=== PATIENT | female | born 1970 | race Caucasian/White ===

== ENCOUNTER 2018-07-17 13:34 | Outpatient (CLI) | payer OTHER, SELFPAY ==
--- NOTE | 2018-07-17 13:30 | DI.RAD_ITS ---
SYMPTOMS/DIAGNOSIS: LEFT KNEE PAIN AND SWELLING, M25.562 LEFT KNEE: There are severe degenerative changes of both femorotibial joints, worse laterally. There is prominent periarticular spurring. Loose bodies are seen posteriorly. There may be a Fierro's cyst with a loose body. No joint effusion is seen. Patellofemoral degenerative changes are also present. IMPRESSION: Severe degenerative changes. Posterior loose bodies are seen.
== END 2018-07-17 13:54 ==
PROVIDERS: PCP Family Medicine; Visit Provider Family Medicine
DX: M25.562 Pain in left knee (principal); M16.11 Unilateral primary osteoarthritis, right hip; M23.42 Loose body in knee, left knee
CPT/HCPCS: 73562

== ENCOUNTER 2018-09-15 13:19 | Outpatient (CLI) | payer OTHER, SELFPAY ==
--- NOTE | 2018-09-15 13:18 | DI.RAD_ITS ---
SYMPTOMS/DIAGNOSIS: LEFT KNEE PAIN LEG LENGTH EXAMINATION: In the right knee, there is periarticular spurring seen both in the medial and lateral femorotibial joint space. In the left knee, there is moderate narrowing of the medial femorotibial joint. Periarticular spurring is seen both in the medial and lateral femorotibial joint spaces. The right lower extremity measures 88.4 cm, the left lower extremity measures 88.4 cm.
== END 2018-09-15 13:39 ==
PROVIDERS: PCP Family Medicine; Visit Provider Physician Assistant
DX: M25.562 Pain in left knee (principal); M76.892 Other specified enthesopathies of left lower limb, excluding foot
CPT/HCPCS: 77073

== ENCOUNTER 2018-10-09 09:42 | Outpatient (CLI) | payer OTHER, SELFPAY ==
[2018-10-09 10:46] LABS: HCT 33.8 % (36.0-46.0); HGB 10.1 g/dL (12.0-15.5); Mean Corp. HGB Concentration 29.9 g/dL (32.0-36.0); Mean Corpuscular Hemoglobin 23.8 pg (27.0-33.0); Mean Corpuscular Volume 79.5 fL (80-95); Mean Platelet Volume 10.7 fL (8.0-11.0); Platelet Count 347 x1000/uL (130-400); RBC 4.25 m/cumm (4.00-5.20); RBC Distribution Width 17.5 % (11.7-14.6); White Blood Cell Count 5.95 k/cumm (4.4-10.8)
[2018-10-09 11:02] LABS: ALT 18 U/L (12-78); AST 9 U/L (15-37); Albumin 3.3 g/dL (3.4-5.0); Alkaline Phosphatase 100 U/L (46-116); Anion Gap 7.4 mmol/L (3-11); BUN 21 mg/dL (7-18); Bilirubin, Total 0.3 mg/dL (0.2-1.0); CO2 29.6 mmol/L (21.0-32.0); CREATININE 0.79 mg/dL (0.55-1.02); Chloride 103 mmol/L (98-107); Cholesterol 161 mg/dL (50-200); Glucose 90 mg/dL (70-100); HDL Cholesterol 46 mg/dL (40-60); LDL CHOLESTEROL 97 mg/dL (<100); Potassium 4.3 mmol/L (3.5-5.1); Sodium 140 mmol/L (136-145); TSH 2.44 uIU/mL (0.358-3.74); Total Protein 6.8 g/dL (6.4-8.2); Triglyceride 88 mg/dL (30-150)
[2018-10-09 11:12] LABS: Calcium 8.6 mg/dL (8.5-10.1)
[2018-10-09 11:16] LABS: Vitamin D 25 Total 24.9 ng/ml (30-100)
== END 2018-10-09 10:02 ==
PROVIDERS: PCP Family Medicine; Visit Provider Family Medicine
DX: Z00.00 Encounter for general adult medical examination without abnormal findings (principal); E55.9 Vitamin D deficiency, unspecified
CPT/HCPCS: 36415; 80053; 80061; 82306; 83721; 85027; 84443

== ENCOUNTER 2018-10-09 09:53 | Outpatient (REF) | payer OTHER, SELFPAY ==
--- NOTE | 2018-10-09 09:00 | PAPFT_PTH ---
PATIENT: Sandra Thompson LOC: [facility] U#:[id number] AGE/SX: 48/F ROOM: RE10/09/[address]: Gianna Huddleston MD, DC : 1970 BED: DIS: 10/09/2018 SPEC #: [id number] RECD: 10/09/18 12:53 STATUS: WEI REQ #: [id number] SONIA: 10/09/18 09:[address]: Teresa Downey DEPT: [facility] Cytology RECD BY: Chelly Chávez ENTERED: 10/09/18 12:53 SP TYPE: PAPFT OTHR DR: Gianna Huddleston MD, DC Tissues: 1 - CX/ENDOCX FOR PAP SMEARS Procedures: PAP THIN PREP/UVM Screening HPV DNA PROBE Comments: [id number]
== END 2018-10-09 10:13 ==
LOC: LBN 09:53
PROVIDERS: PCP Family Medicine; Visit Provider Family Medicine
DX: Z12.4 Encounter for screening for malignant neoplasm of cervix (principal); Z11.51 Encounter for screening for human papillomavirus (HPV)
CPT/HCPCS: 88142; 87624

== ENCOUNTER 2019-01-06 08:34 | Outpatient (CLI) | payer OTHER, SELFPAY ==
--- NOTE | 2019-01-06 08:08 | W.PREOPHP ---
Date of service: 01/06/19 Assessment and Plan (1) Primary osteoarthritis of left knee: Current visit: No Status: Chronic Left total knee replacement. Details of surgery were discussed with patient as well as risks and pertinent anatomy. All questions were answered. History of Present Illness Chief Complaint: Left knee pain Narrative: Sandra is a 48 year-old female who comes in today for a pre-op history and physical for a left total knee replacement. She has been dealing with this pain for a few years now. 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 She does not have pain if she is resting, or sleeping. She does use anti-inflammatories, specifically Mobic, which does help. She has tried injections in the left knee, but they have not given her lasting relief. She has had x-rays done which revealed severe arthritis of the left knee with bone spurs especially in the medial compartment, but also the lateral side as well. There are also bone spurs and a loose body apparent posteriorly. Since she is failed conservative treatment, and the pain does get in the way of her daily activities and work, Dr. Rasmussen offers a left total knee replacement, and Sandra is anxious to proceed. Pertinent Surgical Information Sandra states that she is having some prolonged spotting after menses, and her PCP is aware. They believe at this point that it may have something to do with the transition to menopause. She was encouraged to keep an eye on this, but it should not postpone surgery. We will be getting labs to ensure that she has an adequate H&H. She states that she has an anaphylactic allergy to penicillin, so her preop antibiotic has been to clindamycin. Patient denies history of hypertension, CVA, [place], angina, asthma, COPD, renal or liver disorders, hepatitis, bleeding disorders, diabetes, immune or thyroid disorders. No complications from anesthesia. Review of Systems Constitutional Denies fever(s) ENT Denies dizziness and Denies sore throat Cardiovascular Denies chest pain, Denies palpitations and Denies dyspnea Respiratory Denies cough and Denies dyspnea Gastrointestinal Denies abdominal pain, Denies melena, Denies hematochezia, Denies diarrhea, Denies nausea and Denies vomiting Genitourinary Reports hematuria (believes it is spotting after period. PCP aware.) and Denies dysuria Neurologic Denies dizziness Endocrine Denies palpitations PFSH Family History Mother Essential hypertension Father Hyperlipidemia Brain cancer Sister Depression Maternal Grandfather Stroke Essential hypertension Paternal Grandfather No problems noted. Maternal Grandmother Diabetes Paternal Grandmother Diabetes Breast cancer Son Depression Daughter Depression MATERNAL FAMILY HISTORY Diabetes Personal history of malignant neoplasm Depression Heart disease Hyperlipidemia PATERNAL FAMILY HISTORY Diabetes Personal history of malignant neoplasm Social History Smoking/Tobacco Use Status: Never Second Hand Exposure: Yes Alcohol Intake: current Alcohol Intake frequency: holidays/special occasions only Drug use: Never Substance use type: does not use Caregiver/Support person: No Household members: spouse Housing: house Communication Needs: Corrective Lenses Do you need help understanding health information?: Never Pets and animals: Yes Pets and animals: dog(s) Sexually active: Yes Do you think of yourself as: straight/heterosexual Current gender identity: female What is your relationship status?: How often do you talk on the phone with friends or family?: three or more times per week How often do you get together with friends or relatives?: twice per week How often do you attend scientologist or hinduism services?: decline to answer Do you belong to any clubs or organized social groups?: no Panel score (0-1 are the most socially isolated patients): 2 What type of physical activity do you participate in: none Nany/Pentecostalism: No preference Special nany needs: No Seatbelt use: always Helmet use: No Drive intox or ride w/intox 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: No Meds Home Medications Medication Instructions Recorded Confirmed Type albuterol sulfate HFA 90 1 - 2 puff INHALATION Q4H PRN #1 07/17/18 01/06/19 Rx mcg/actuation aerosol inhaler puff meloxicam 7.5 mg tablet 7.5 mg PO BID PRN #180 tab 10/09/18 01/06/19 Rx ergocalciferol (vitamin D2) 50,000 50,000 unit PO M-W-F #12 tab-cap 12/09/18 01/06/19 Rx unit capsule Allergies Allergy/AdvReac Type Severity Reaction Status Date / Time Iodinated Contrast- Oral and Allergy Severe Anaphylaxis Verified 01/06/19 08:46 IV Dye [Iodinated Contrast Media - IV Dye] iopamidol Allergy Severe Anaphylaxis Verified 01/06/19 08:46 pantoprazole Allergy Intermediate Rash Verified 01/06/19 08:46 citalopram AdvReac Severe suicidal Verified 01/06/19 08:46 buspirone AdvReac Intermediate made Verified 01/06/19 08:46 suicidal per pt. DL Penicillins AdvReac Ineffective Verified 01/06/19 08:46 Exam HENIN Head: normocephalic and atraumatic General nose exam: no nasal discharge Throat: uvula midline and no uvular edema Other: soft palate rises symmetrically, no erythema Eyes Conjunctivae: conjunctivae normal Sclera: sclerae normal Pupils: PERRL Resp Effort & Inspection: normal respiratory effort Auscultation: clear to auscultation bilaterally and no wheezes Cardio Rate: regular rate Rhythm: regular rhythm Heart Sounds: S1 normal, S2 normal and no murmurs GI Palpation: soft, no hepatosplenomegaly and nontender Auscultation: normal bowel sounds Results BP: 110/76 HR: 63
--- NOTE | 2019-01-06 08:18 | HPE_ITS ---
Date of service: 01/06/19 Assessment and Plan (1) Primary osteoarthritis of left knee: Current visit: No Status: Chronic Left total knee replacement. Details of surgery were discussed with patient as well as risks and pertinent anatomy. All questions were answered. History of Present Illness Chief Complaint: Left knee pain Narrative: Sandra is a 48 year-old female who comes in today for a pre-op history and physical for a left total knee replacement. She has been dealing with this pain for a few years now. She works at [employer] and is having difficulty when she has to be on her feet for long periods of time, or when she is going up and down stairs or ladder to restock shelves. She does not have pain if she is resting, or sleeping. She does use anti-inflammatories, specifically Mobic, which does help. She has tried injections in the left knee, but they have not given her lasting relief. She has had x-rays done which revealed severe arthritis of the left knee with bone spurs especially in the medial compartment, but also the lateral side as well. There are also bone spurs and a loose body apparent posteriorly. Since she is failed conservative treatment, and the pain does get in the way of her daily activities and work, Dr. Rasmussen offers a left total knee replacement, and Sandra is anxious to proceed. Pertinent Surgical Information Sandra states that she is having some prolonged spotting after menses, and her PCP is aware. They believe at this point that it may have something to do with the transition to menopause. She was encouraged to keep an eye on this, but it should not postpone surgery. We will be getting labs to ensure that she has an adequate H&H. She states that she has an anaphylactic allergy to penicillin, so her preop antibiotic has been to clindamycin. Patient denies history of hypertension, CVA, [place], angina, asthma, COPD, renal or liver disorders, hepatitis, bleeding disorders, diabetes, immune or thyroid disorders. No complications from anesthesia. Review of Systems Constitutional Denies fever(s) ENT Denies dizziness and Denies sore throat Cardiovascular Denies chest pain, Denies palpitations and Denies dyspnea Respiratory Denies cough and Denies dyspnea Gastrointestinal Denies abdominal pain, Denies melena, Denies hematochezia, Denies diarrhea, Denies nausea and Denies vomiting Genitourinary Reports hematuria (believes it is spotting after period. PCP aware.) and Denies dysuria Neurologic Denies dizziness Endocrine Denies palpitations PFSH Family History Mother Essential hypertension Father Hyperlipidemia Brain cancer Sister Depression Maternal Grandfather Stroke Essential hypertension Paternal Grandfather No problems noted. Maternal Grandmother Diabetes Paternal Grandmother Diabetes Breast cancer Son Depression Daughter Depression MATERNAL FAMILY HISTORY Diabetes Personal history of malignant neoplasm Depression Heart disease Hyperlipidemia PATERNAL FAMILY HISTORY Diabetes Personal history of malignant neoplasm Social History Smoking/Tobacco Use Status: Never Second Hand Exposure: Yes Alcohol Intake: current Alcohol Intake frequency: holidays/special occasions only Drug use: Never Substance use type: does not use Caregiver/Support person: No Household members: spouse Housing: house Communication Needs: Corrective Lenses Do you need help understanding health information?: Never Pets and animals: Yes Pets and animals: dog(s) Sexually active: Yes Do you think of yourself as: straight/heterosexual Current gender identity: female What is your relationship status?: How often do you talk on the phone with friends or family?: three or more times per week How often do you get together with friends or relatives?: twice per week How often do you attend alevism or zoroastrianism services?: decline to answer Do you belong to any clubs or organized social groups?: no Panel score (0-1 are the most socially isolated patients): 2 What type of physical activity do you participate in: none Nany/Lutheran: No preference Special nany needs: No Seatbelt use: always Helmet use: No Drive intox or ride w/intox 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: No Meds Home Medications Medication Instructions Recorded Confirmed Type albuterol sulfate HFA 90 1 - 2 puff INHALATION Q4H PRN #1 07/17/18 01/06/19 Rx mcg/actuation aerosol inhaler puff meloxicam 7.5 mg tablet 7.5 mg PO BID PRN #180 tab 10/09/18 01/06/19 Rx ergocalciferol (vitamin D2) 50,000 50,000 unit PO M-W-F #12 tab-cap 12/09/18 01/06/19 Rx unit capsule Allergies Allergy/AdvReac Type Severity Reaction Status Date / Time Iodinated Contrast- Oral and Allergy Severe Anaphylaxis Verified 01/06/19 08:46 IV Dye [Iodinated Contrast Media - IV Dye] iopamidol Allergy Severe Anaphylaxis Verified 01/06/19 08:46 pantoprazole Allergy Intermediate Rash Verified 01/06/19 08:46 citalopram AdvReac Severe suicidal Verified 01/06/19 08:46 buspirone AdvReac Intermediate made Verified 01/06/19 08:46 suicidal per pt. DL Penicillins AdvReac Ineffective Verified 01/06/19 08:46 Exam HENMD Head: normocephalic and atraumatic General nose exam: no nasal discharge Throat: uvula midline and no uvular edema Other: soft palate rises symmetrically, no erythema Eyes Conjunctivae: conjunctivae normal Sclera: sclerae normal Pupils: PERRL Resp Effort & Inspection: normal respiratory effort Auscultation: clear to auscultation bilaterally and no wheezes Cardio Rate: regular rate Rhythm: regular rhythm Heart Sounds: S1 normal, S2 normal and no murmurs GI Palpation: soft, no hepatosplenomegaly and nontender Auscultation: normal bowel sounds Results BP: 110/76 HR: 63
[2019-01-06 10:02] LABS: HCT 34.3 % (36.0-46.0); HGB 10.3 g/dL (12.0-15.5); Mean Corpuscular Hemoglobin 23.9 pg (27.0-33.0); Mean Corpuscular Volume 79.6 fL (80-95); Mean Platelet Volume 10.2 fL (8.0-11.0); Platelet Count 347 x1000/uL (130-400); RBC 4.31 m/cumm (4.00-5.20); RBC Distribution Width 15.8 % (11.7-14.6); White Blood Cell Count 6.78 k/cumm (4.4-10.8)
[2019-01-06 10:25] LABS: Anion Gap 9.6 mmol/L (3-11); BUN 13 mg/dL (7-18); CO2 26.4 mmol/L (21.0-32.0); CREATININE 0.71 mg/dL (0.55-1.02); Calcium 8.3 mg/dL (8.5-10.1); Chloride 102 mmol/L (98-107); Glucose 91 mg/dL (70-100); Potassium 4.4 mmol/L (3.5-5.1); Sodium 138 mmol/L (136-145)
== END 2019-01-06 08:54 ==
PROVIDERS: PCP Family Medicine; Visit Provider Student in an Organized Health Care Education/Training Program
DX: M25.562 Pain in left knee (principal); M17.12 Unilateral primary osteoarthritis, left knee; Z01.812 Encounter for preprocedural laboratory examination; Z01.818 Encounter for other preprocedural examination
CPT/HCPCS: 36415; 80048; 85027; NC

== ENCOUNTER 2019-01-13 07:27 | Inpatient (IN) | payer OTHER, SELFPAY ==
[2019-01-13] VITALS (17 sets, daily range): BP systolic 84–125; BP diastolic 33–76; PULSE 60–83; RESP 15–20; TEMP 36–37; O2SAT 93–98
[2019-01-13] MEDS: Acetaminophen 500 MG TAB 1000 MG PO ×3 (08:12→19:21)
[2019-01-13] MEDS: oxyCODONE-CR 10 MG TABCR PO (08:12)
[2019-01-13] MEDS: Gabapentin 300 MG CAP PO ×2 (08:12→21:36)
[2019-01-13] MEDS: Celecoxib 200 MG CAP 400 MG PO (08:12)
[2019-01-13] MEDS: Lactated Ringers 1,000 ML 80 ML IV ×3 (08:13→21:05)
[2019-01-13] MEDS: Bupivacaine 0.25% Pres-Free 10 ML VIAL (09:15)
[2019-01-13] MEDS: Bupivacaine LIPOSOME/PF 133 MG/10 ML VIAL IJ ×2 (09:15→11:12)
[2019-01-13] MEDS: Normal Saline 50 ML (11:12)
[2019-01-13] MEDS: Ketorolac 30 MG/ML VIAL (11:12)
[2019-01-13] MEDS: Bupivacaine 0.25% Pres-Free 30 ML VIAL (11:12)
[2019-01-13] MEDS: Albuterol 2.5 MG/3 ML INH SOLN VIAL UPD (12:15)
[2019-01-13] MEDS: oxyCODONE 5 MG TAB PO ×2 (14:50→16:23)
--- NOTE | 2019-01-13 16:08 | PT.INIE ---
Date of service: 01/13/19 Time of Service: 14:07 PT Notes Inpatient Physical Therapy Evaluation Date: 01/13/2019 Referring Doctor: Andrez Rasmussen MD PT Orders: PT CONSULT: Status post left TKA Precautions: Fall. Standard. Patient Profile/Admitting Diagnosis: Patient is a 48-year-old female with primary unilateral osteoarthritis of left knee status post total knee arthroplasty on postoperative day 0. PMHX: Osteoarthritis of left knee Osteoarthritis of right hip Social History/Home Situation: Patient lives with in a 1floor house with 2 steps to get onto a landing and another 2 steps to the entrance door, rails on both sides. She is independent with all aspects of ADLs without the need for an assistive ambulatory device nor adaptive equipment but recently had to use a cane as her left knee was starting to limit her functional mobility performance. Patient works at a [employer] in [place] and does a lot of lifting and climbing ladders. Patient states however that she has enough time to recover from this surgery before she is expected back to work. She still drives. Current Functional Limitations: Need for assistance for all transfer and ambulation task using front wheeled walker Equipment Owned/DME: [place] Subjective: Patient is agreeable to a PT consult and treatment today. She states that although diminished, she is able to feel light pressure on her left lower extremity. She reports tingling and prickly sensation on the left leg and left foot. Objective: General Observation: Patient seen resting in bed. IV in right UE. Mittal catheter in place. Anti-DVT pump on R leg. MANJINDER wraps on left LE. Cryocuff device on left knee. Mental Status: Alert and oriented x4 Pain: 5/10 at rest. 9/10 with standing activity. No pain was reported on R hip during strenght testing. Vital Signs: Negative for orthostatic hypotension on evaluation. ROM: Right Upper Extremity: Shoulder Flexion WFL. Shoulder abduction WFL. Elbow flexion WFL. Wrist flexion WFL. Functional opening and closing of hand WFL. Left Upper Extremity: Shoulder Flexion WFL. Shoulder abduction WFL. Elbow flexion WFL. Wrist flexion WFL. Functional opening and closing of hand WFL. Right Lower Extremity: Hip flexion WFL. Hip abduction WFL. Knee flexion WFL. Ankle dorsiflexion WFL. Ankle plantarflexion WFL. Left Lower Extremity: Patient was able to perform 20 degrees of hip flexion while sitting at edge of bed before discomfort was felt. Knee flexion 0 to 89 degrees in supine with MANJINDER wraps and pain level limiting further movement, 0-78 degrees in sitting at edge of bed with MANJINDER wraps and pain level limiting further movement. Knee extension 78 to 0 degrees while sitting at edge of bed. Ankle dorsiflexion WFL. Ankle plantarflexion WFL. Strength: Right Upper Extremity: Shoulder flexors 5/5. Shoulder abductors 5/5. Elbow flexors 5/5. Elbow extensors 5/5. Rug Drying Machine Operator strong. Left Upper Extremity: Shoulder flexors 5/5. Shoulder abductors 5/5. Elbow flexors 5/5. Elbow extensors 5/5. Rug Drying Machine Operator strong. Right Lower Extremity: Hip flexors 5/5. Hip abductors 5/5. Knee flexors 5/5. Knee extensors 5/5. Ankle dorsiflexors 5/5. Ankle plantarflexors 5/5. Left Lower Extremity:Hip flexors 3-/5. Knee flexors 3-/5. Knee extensors 3+/5. Ankle dorsiflexors 5/5. Ankle plantarflexors 5/5. Sensation: Intact as to light pressure on right lower extremity, diminished on left lower extremity. Bed Mobility/Transfers: Rolling minimal assist Supine to sit minimal assist Sit to supine minimal assist Sit to stand moderate assist of 2 with patient reporting 9/10 pain on left knee and feeling sick/lightheaded Stand to sit moderate assist of 2 with patient reporting 9/10 pain on left knee and feeling sick/lightheaded Bed to chair NT Chair to bed NT Gait: Patient, nurse, and PT agreed to defer walking activity as patient is reporting 9/10 pain on left knee with weight bearing and is feeling sick and lightheaded. She stated that she does not feel stable on that left lower extremity knowing that sensation may not have fully returned as of yet due to postoperative status. Nurse ensure that patient received her pain medication as soon as patient was repositioned back in bed. Balance: Static Sitting: Good Dynamic Sitting: Good Static Standing: Poor. With moderate assist of 2, patient was able to tolerate static standing up to about 2 minutes of static standing while holding onto FWW before complaints of lightheaded feeling sick were reported. Dynamic Standing: Poor. With moderate assist of 2, patient was able to tolerate static standing up to about 2 minutes of static standing while holding onto FWW before complaints of lightheaded feeling sick were reported. Special Tests: Mobility Limitations Standardized Measure [facility] 6 clicks Basic Mobility Inpatient Short Form: Raw Score: 6 CMS Score: 100% Informed Consent/Education: Patient instructed in purpose of PT consult and plan of care. Assessment: Patient is a 48-year-old female with primary unilateral osteoarthritis of left knee status post total knee arthroplasty on postoperative day 0. Patient presents with clinical signs and symptoms consistent with current/admitting diagnoses that have resulted to mobility limitations, gait instability, generalized weakness, and impairment of motor control as demonstrated by the following impairment level findings: 1. Decreased strength to L LE major muscle groups 2. Impaired sitting/standing balance 3. Impaired activity tolerance 4. Limitation of joint range of motion in L knee 5. Pain level of 9/10 on left knee with weight bearing Impairments are contributing to the following functional limitations: 1. Dependent bed mobility skills 2. Increased dependence with transfers 3. Inability to safely ambulate without assistive device and physical assistance 4. Increase completion time for mobility ADL performance 5. Increased fall risk 6. Inability to negotiate steps alone safely Patient is assessed as a 76249 moderate complexity based on the following: History: 48-year-old female cognitively intact female with premorbid independent functional mobility level who is status post left total knee arthroplasty on postoperative day 0 Examination: Demonstrable impairment in strength, balance, and range of motion with underlying impairments and functional limitations as documented above Presentation:Evolving Decision Makin moderate complexity Goals: Goals X1 week 1. Supine-Sit independent 2. Sit-Supine independent 3. Sit-Stand independent 4. Stand-Sit independent 5. Bed-Chair independent 6. Chair-Bed independent 7. Independent gait on level surface with use of least restrictive device for at least 300 feet without report of pain nor dyspnea 8. Independent stair negotiation while holding onto bilateral rails for at least 5 steps without report of pain nor dyspnea 9. Independent with home exercise program 10. Good static and dynamic standing balance/tolerance Plan of Care/Treatment Plan: 1-2x/day, 7 days/week x 1 week. Plan of care has been reviewed with the MARKET RESEARCH CONSULTANT providing the service under Physical Therapy direction. Initiate Physical Therapy intervention for strengthening, bed mobility, transfers, gait, stairs, balance training, use of assistive device. DISCHARGE RECOMMENDATIONS: May benefit from skilled physical therapy services according to orthopedic surgeon timeline recommendations. Patient will be educated and trained on home exercise program per TKA exercise protocol in preparation for outpatient physical therapy services. TREATMENT CODE/TIME: 9716 2 x 30 minutes, 9753 0 x 13 minutes beginning at 14:07 PM. Thank you very much for this referral. Kelsi Burrows PT, DPT, CLT [facility]
[2019-01-13] MEDS: Albuterol HFA 8 GM 60 PUFF INH IH (18:44)
[2019-01-13] MEDS: Aspirin E.C. 81 MG TABEC PO (19:21)
[2019-01-13] MEDS: Celecoxib 200 MG CAP PO (19:21)
[2019-01-13] MEDS: HYDROmorphone 2 MG/ML VIAL 0.5 MG IVP (20:34)
[2019-01-14] VITALS (8 sets, daily range): BP systolic 102–121; BP diastolic 55–73; PULSE 67–78; RESP 16–20; TEMP 36.5–37.2; O2SAT 92–96
[2019-01-14] MEDS: HYDROmorphone 2 MG/ML VIAL 0.5 MG IVP ×2 (01:04→07:28)
[2019-01-14] MEDS: oxyCODONE 5 MG TAB PO ×4 (06:06→22:05)
--- NOTE | 2019-01-14 07:20 | W.PM.OP ---
Date of service: 01/13/19 Time of Service: 13:21 Operative Note DATE OF PROCEDURE: 01/13/19 PRE-OP DIAGNOSIS: Left knee osteoarthritis POST-OP DIAGNOSIS: same PROCEDURE: Left Total Knee Replacement SURGEON: Andrez Rasmussen PAIN MANAGEMENT PHYSICIAN: Luis Riddle ANESTHESIA: regional and spinal ESTIMATED BLOOD LOSS: 250 PATHOLOGY: none sent TOURNIQUET TIME: 28 COMPLICATIONS: None Patient was transported to: PACU Patient's condition: stable Implants: 1. Depuy Attune Posterior Stabilized Femoral Component, Size 5 narrow 2. Depuy Attune Fixed Platform Tibial Component, Size 4 3. Depuy Attune 5 x 6 mm fixed, Stabilized Poly 4. Depuy Attune Patellar Component, Size 32 mm Indications: I have seen Sandra in clinic for symptoms of left knee arthritis, confirmed with radiographic findings. Sandra has exhausted nonoperative methods and was having significant limitations in daily function and desired better function and less pain. I discussed the technical details of a knee replacement. I explained the risks of the procedure to include, but not limited to, bleeding, infection, pain, stiffness, fracture, damage to nerves and vessels, damage to muscles and tendons, loosening, need for repeat procedure, blood clot and cardiopulmonary demise. Despite these risks, she elected to proceed. Findings: There was significant signs of arthritis throughout the knee. There was a surprising amount of wear on the medial femur as well as the lateral compartment as expected. 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 Procedure Description: Sandra was greeted in the preoperative holding area where the correct side was identified and marked. The consent was reviewed with the patient and signed. The history and physical was updated. All questions were answered. Preoperative mediacations were administered: Acetaminophen 1000mg, Celebrex 400mg, Gabapentin 300mg, and Oxycontin 10mg. An adductor canal block was then administered by the anesthesia team in the PACU. Sandra was taken back to the operating room. A spinal anesthestic was then administered. The patient was placed into the supine position on the operating room table. A nonsterile tourniquet was placed high onto the leg but only used for cementing. Posts were placed for positioning during the procedure. All bony prominences were well padded. Prophylactic antibiotics in the form of vancomycin were administered. 1g of Tranxemic Acid was given intravenously within 30 minutes of incision. The left leg was then prepped with Chloraprep and draped in a standard fashion with impervious stockinette and extremity drape with Iodine impregnated skin protection. A timeout to confirm correct identity, side and site, procedure, allergies, anesthesia, and medical concerns was performed. With the knee in some flexion, a midline incision was made overlying the knee. Full thickness skin flaps were raised once the extensor mechanism was encountered. These were raised medially and laterally. Any bleeding was controlled with electrocautery. Once the extensor mechanism was fully exposed, a medial parapatellar arthrotomy was performed in a flexed position. All bleeding from the arthrotomy and the geniculate arteries was coagulated. A medial subperiosteal peel was performed with electrocautery to the midcoronal plane. The fat pad was removed while keeping the patellar tendon protected. The anterior distal femur synovium was removed for later visualization. The ACL and PCL were resected and the anterior horn of the lateral meniscus was transected. The knee was then flexed with the patella everted. Large osteophytes from the tibia were removed. Large osteophytes from the femur were removed. Using a step drill, and based on preoperative templating, the femoral canal was entered. This was done with a step drill without any difficulty. The intramedullary distal femoral cut guide was inserted, set to a 5 degree valgus cut and 9mm cut thickness. There was some hypoplasia of the lateral femoral condyle and any remnant cartilage of the medial femoral condyle was removed for appropriate thickness. The distal femoral cut guide was then held in position and pinned. With the soft tissues protected, the distal cut was performed. This was passed over a few times to ensure a planar cut. I then turned attention to the tibia. The extramedullary guide was placed onto the leg. The distal aspect was slid medial to adjust for position of center of ankle and stay in line with shaft of the tibia. Approximately 3-5 degrees of posterior slope was kept in the proximal cutting guide. The center of the guide was aligned with the PCL. The stylus was used to assess cut thickness. As per preoperative planning, the cut was quite even. I took 6 mm from the lateral side which corresponded to 8 mm in the medial side, both having some wire. This was then held in position and pinned into place with 2 additional pins and a cross pin for stability. The medial and lateral collateral ligaments were protected and the cut was performed. With this completed, it was assessed and noted to be of appropriate dimensions. The guide was removed. A spacer block was inserted and the knee was brought into extension. The 6mm spacer block provided full extension, without hyperextension and with stability of both the medial and lateral collateral ligaments was assessed. The pins from the femur and the tibia were then removed. The distal femur was then sized. The anterior stylus was placed onto the lateral ridge of the anterior femur. This indicated a size 5 narrow femur. The external rotation of the guide was adjusted to 5 degrees to match the epicondylar axis, perpendicular to Inez?s line. The 4-in-1 cutting guide was the placed. The posterior medial femur cut was evaluated and appeared of good thickness. The spacer block was inserted underneath the cutting guide and stability was confirmed in 90 degrees of flexion. An edgardo wing was used to confirm appropriate position of the anterior cut to avoid notching. This cutting guide was ensured to be flush on the cut surface and then pinned into place with headed pins. While protecting the soft tissues, quad tendon, and collateral ligaments, the anterior and posterior cuts were performed with a saw. The central two pins were removed and the posterior and anterior chamfers were cut next. The notch-cutting guide was placed. This was pinned to lateralize the femoral component as much as possible while keeping it flush on the cut surface. This was then pinned into position. A reciprocating saw was used to make the notch cut. A rasp smoothed the cut surfaces. A trial posterior stabilized femoral component was then inserted, impacted down to the cut surfaces, and the lug holes were drilled. A provisional trial tibial component was placed and the knee was brought through range of motion. There was noted to be excellent extension and flexion. There was no significant instability. The patella was tracking without thumbs. The tibial cut surface was fully exposed. The medial and lateral menisci were removed. The tibia was then sized as a 4. The tibia had been previously marked during trialing to correspond to the center of the tibial component to help with rotation. The trial was aligned to this luis, approximately rotated to the medial 1/3rd of the tibial tubercle. The trial was pinned into place. The tibia was prepared with a reamer and a keel punch. The knee was then brought into extension and the patella was measured as 25 mm. Using the patellar clamp and cut guide, this was resected to a flat surface with at least 13mm of thickness remaining. The size 32 mm patella fit the best. This was oriented and then clamped into position. The lugs were drilled. The trial components were removed. The final components, except for the polyethylene were opened on the back table. The periosteal and capsular tissues, especially posteriorly, around the knee were then systematically injected with a periarticular cocktail consisting of 50cc 0.25% Marcaine, 30mg Ketorolac, 20cc of Exparal and 50cc of injectable saline. The tourniquet was then inflated to 275mmHg. The knee was thoroughly irrigated with a pulse lavage and dried. On the back table, with the implants opened, the cement was mixed. 2 batches of antibiotic laden cement were prepared with vacuum assistance. After the cement was ready a small amount was placed on to the back side of the tibial component at the keel. A small amount was placed onto the posterior flange of the femur. Cement was manual pressurized and impregnated into the cut surface of the tibia. The tibial component was then inserted into the cut surface and impacted into position. Excess cement was removed and the component was reimpacted. Again, excess cement was removed and our attention was then turned to the femur. The femoral cut surface was once again dried and cement was manually impacted into the cut surface. The femoral component was lined with the lug holes and impacted. Excess cement was removed. It was ensured to be down against the cut surface. The trial polyethylene was then inserted and the leg was brought out into full extension for the duration of the cement curing process, approximately 15min. Cement was lastly manually impacted into the cut surface of the patella and the patellar button was clamped into position and held. During this process attention was turned to the gutters of the knee and for all interfaces for any excess cement. After the cement had finally cured, approximately 15min, the clamp was removed from the patella and the knee was taken through range of motion. A size 6mm polyethylene component provided the best range of motion and stability with less than 2mm gapping with medial and lateral stress and full extension without significant hyperextension. The patella was tracking with a no-thumbs technique. The trial poly was removed and once again the knee was checked for any loose, excess, or errant cement. The poly component was then inserted and impacted into position after cleaning and drying the tibial tray. The capsule was then reapproximated with a No. 1 Vicryl at multiple locations. The capsule was finally closed with a No. 2 Stratafix, barbed suture. The tourniquet was then released and the arthrotomy appeared watertight without significant bleeding. The second dosing of 1g TXA was started. Deep tissues were then reapproximated with 0 Vicryl and 2-0 Vicryl. The skin was closed with a running 3-0 Monocryl in a subcuticular fashion. This was reinforced with skin glue. A Mepilex silver dressing was applied along with a [id number] MANJINDER wrap. A CryoCuff was applied. Sandra was transferred to the hospital bed without difficulty an suffering no apparent complication. Sandra has a good prognosis. Physical therapy will start today and without restrictions, weight-bearing as tolerated. Aspirin 81mg BID will be used for DVT prophylaxis.
[2019-01-14] MEDS: Aspirin E.C. 81 MG TABEC PO ×2 (07:37→19:53)
[2019-01-14] MEDS: Dexamethasone 4 MG TAB PO (07:37)
[2019-01-14] MEDS: Celecoxib 200 MG CAP PO (07:37)
[2019-01-14] MEDS: Ergocalciferol 50000 UNITS CAP PO (07:37)
[2019-01-14] MEDS: Esomeprazole 40 MG CAPCR PO (07:38)
[2019-01-14] MEDS: Acetaminophen 500 MG TAB 1000 MG PO ×3 (07:38→19:53)
[2019-01-14] MEDS: Ketorolac 30 MG/ML VIAL IVP ×3 (10:01→22:05)
--- NOTE | 2019-01-14 12:32 | PDOC.CMIN ---
- If Service Date Differs Date of service: 01/14/19 Time of Service: 12:32 Care Management Initial Assess REASON FOR HOSPITALIZATION:: Left Knee osteoarthritis status post TKA on 01/13/19 PAST MEDICAL HISTORY/PAST SURGICAL HISTORY:: Fibromyalgia, osteroarthritis of the left knee, visual field defecit, PTSD, anxiety, adult night terror, facial frostbite, GERD, hiatal hernia, increased BMI, vit D deficiency. tedonitis of the left rotator cuff, urinary incontinance. Surgical history: cervical conization/LEEP, , ACL reconstruction. 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 Her son has special needs however she reports he is independent. CURRENT FUNCTIONAL STATUS:: Sandra is alert and engaged with CM. She states she is hopeful she will be discharged on . She will need a FWW which CM will coordinate through DME of choice. Sandra does have steps into the home and is planning to work with PT to accomplish stairs prior to discharge. She has decided to complete outpatient PT as directed by . Sandra plans to be out of work until April she reports that she has vacation time and short term disability in place. She will have help at home from her spouse and children per report. ADVANCE DIRECTIVES:: None on file she is not interested in completing at this time Has patient been provided with information about the portal?: Yes Did the patient sign up for the portal?: No (Requested info) CODE STATUS:: Full Code INSURANCE COVERAGE / FINANCIAL ISSUES:: [facility] CURRENT HOME/COMMUNITY SERVICES/EQUIPMENT:: None, CM will coordinate FWW as requested by Pt and PT. PRIMARY CARE PHYSICIAN:: POTENTIAL DISCHARGE NEEDS:: FWW, follow up with provider and outpatient PT when directed. PATIENT/FAMILY EDUCATION NEEDS:: Discharge education, limitations and follow up plan of care. ANTICIPATED BARRIERS TO DISCHARGE:: None TRANSPORTATION:: Via private car with daughter at time fo discharge. PLAN:: Sandra, will be discharged home when medically ready per provider. She will continue to participate with PT. Anticiapte no additional services at time of discharge. CM to continue to provide support discharge planning.
--- NOTE | 2019-01-14 12:35 | INITIAL_ITS ---
- If Service Date Differs Date of service: 01/14/19 Time of Service: 12:32 Care Management Initial Assess REASON FOR HOSPITALIZATION:: Left Knee osteoarthritis status post TKA on 01/13/19 PAST MEDICAL HISTORY/PAST SURGICAL HISTORY:: Fibromyalgia, osteroarthritis of the left knee, visual field defecit, PTSD, anxiety, adult night terror, facial frostbite, GERD, hiatal hernia, increased BMI, vit D deficiency. tedonitis of the left rotator cuff, urinary incontinance. Surgical history: cervical conization/LEEP, , ACL reconstruction. 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 Her son has special needs however she reports he is independent. CURRENT FUNCTIONAL STATUS:: Sandra is alert and engaged with CM. She states she is hopeful she will be discharged on . She will need a FWW which CM will coordinate through DME of choice. Sandra does have steps into the home and is planning to work with PT to accomplish stairs prior to discharge. She has decided to complete outpatient PT as directed by . Sandra plans to be out of work until April she reports that she has vacation time and short term disability in place. She will have help at home from her spouse and children per report. ADVANCE DIRECTIVES:: None on file she is not interested in completing at this time Has patient been provided with information about the portal?: Yes Did the patient sign up for the portal?: No (Requested info) CODE STATUS:: Full Code INSURANCE COVERAGE / FINANCIAL ISSUES:: [facility] CURRENT HOME/COMMUNITY SERVICES/EQUIPMENT:: None, CM will coordinate FWW as requested by Pt and PT. PRIMARY CARE PHYSICIAN:: POTENTIAL DISCHARGE NEEDS:: FWW, follow up with provider and outpatient PT when directed. PATIENT/FAMILY EDUCATION NEEDS:: Discharge education, limitations and follow up plan of care. ANTICIPATED BARRIERS TO DISCHARGE:: None TRANSPORTATION:: Via private car with daughter at time fo discharge. PLAN:: Sandra, will be discharged home when medically ready per provider. She will continue to participate with PT. Anticiapte no additional services at time of discharge. CM to continue to provide support discharge planning.
--- NOTE | 2019-01-14 12:44 | PT.INTREAT ---
Date of service: 01/14/19 Time of Service: 12:45 PT Notes Inpatient Physical Therapy Treatment Note [facility] Date: 01/14/2019 PRECAUTIONS: Fall, WBAT R SUBJECTIVE: Sandra states that she is having significant pain in her right knee this morning, although is agreeable to participating in PT. She reports that the pain is getting better this afternoon, although she continues to have discomfort on lateral side of R knee. OBJECTIVE: PAIN: Patient complains of significant right knee pain with gait training, ther ex, and transfers BED MOBILITY/TRANSFERS Supine-sit: I with HOB at 20 degrees Sit-stand: CGA Stand-sit: CGA GAIT Assistive Device: FWW Weight bearing: WBAT R Assist: CGA Distance: 15' in a.m.; 10' + 30' in p.m. Deviation: Step-to gait pattern, pain, slow pace, standing rest x4 THEREX: Patient completed a lower extremity strengthening program, in a seated position, as per flow sheet. She is able to perform active SLR x10. Ends with cryocuff to R knee. TOILETING: Patient toileted with SBA for transfers only ASSESSMENT: Patient tolerated session with complaints of significant right knee pain with gait training, ther ex, and transfers. Patient was able to tolerate a progression in gait distance utilizing step-to gait pattern with FWW support and CGA. Patient would benefit from continued gait and transfer training as well as strengthening for improved mobility and improved activity tolerance. PLAN: Continue with PTs POC TREATMENT CODE/TIME: Session 1: 25 minutes; [id number], [id number] Session 2: 30 minutes; [id number], [id number]
--- NOTE | 2019-01-14 13:09 | W.PM.PROGNOT ---
Date of Service Date of service: 01/14/19 Time of Service: 13:10 Assessment and Plan (1) Primary osteoarthritis of left knee: Current visit: No Status: Maritza Flores is a 48-year-old status post left knee replacement. She has had some pain issues. She does not seem to have any major comp occasions from the surgery or anesthetic. We will slowly work on better pain control. I have encouraged her to work with physical therapy. We will continue with ketorolac IV as well as the oral pain medications. Ambulate as tolerated with nursing and physical therapy. Aspirin for DVT prophylaxis. Subjective Interval history since last seen: When he does report that the pain has improved. However, she still having significant pain. She is only able to ambulate outside to the hallway and back. She has been able straight leg raise reports the pain is just too great to stand on for very long. She denies any numbness or tingling. She denies any nausea or vomiting. She denies any chest pain or shortness of breath. The pain medications have helped in the switch to ketorolac has been helpful. Exam Narrative Exam Narrative: Left leg is wrapped in El wrap. It is removed due to pain complaints the posterior knee. There is no noted complications. No significant swelling. No ecchymosis. She has intact sensation over the deep and surface of peroneal nerves and tibial nerve. The foot is warm and well perfused with a palpable DP and PT pulse. She has intact ankle dorsiflexion, plantarflexion, eversion, inversion. Objective Objective Clinical Data: Vital Signs Temperature 36.8 C 01/14/19 11:19 Temperature Source Tympanic 01/14/19 11:19 Pulse 78 01/14/19 11:19 Pulse Rhythm Regular 01/14/19 08:47 Respiratory Rate 18 01/14/19 11:19 Respiratory Effort Non-Labored 01/14/19 08:47 Respiratory Depth Normal 01/14/19 08:47 Respiratory Pattern Normal 01/14/19 08:47 Blood Pressure 109/65 01/14/19 11:19 Pulse Oximetry 95 01/14/19 11:19 Respiratory End-tidal CO2 29 01/13/19 12:55 Oxygen Delivery Method Room Air 01/14/19 11:19 Oxygen Flow Rate 0 01/14/19 11:19 Pain Level 7 01/14/19 12:08 Comment 01/14/19 03:15 Intake & Output 01/13/19 01/14/19 01/14/19 23:59 11:59 23:59 Intake Total 1348 / 2268 1760.000 / 1760.000 Output Total 2250 / 2725 2250 / 2250 Balance -902 / -457 -490.000 / -490.000 Intake: IV 948 / 1868 1400.000 / 1400.000 Oral 400 / 400 360 / 360 Output: Urine 2250 / 2475 2250 / 2250 Other: Urine Color Light Parisa Pale Yellow Urine Appearance Clear Clear Emesis Description None Voiding Methods Toilet
--- NOTE | 2019-01-14 14:44 | CHAPLAIN ---
Sandra was resting in bed when I visited. She said she believes the surgery will be worth it as her knee was really hurting her. Her was in to visit yesterday, but doesn't like visiting hospital, so won't be back today. Her kids are keeping in touch by phone. Sandra asked about stoppingin the chapel and I encouraged her to do that anytime.
[2019-01-14] MEDS: Normal Saline Flush 10 ML SYR IV ×2 (15:55→22:05)
[2019-01-14] MEDS: Gabapentin 300 MG CAP PO (22:05)
[2019-01-15] MEDS: Ketorolac 30 MG/ML VIAL IVP (03:12)
[2019-01-15] MEDS: Normal Saline Flush 10 ML SYR IV ×2 (03:13→08:23)
[2019-01-15 03:31] VITALS: BP 110/64; PULSE 66; RESP 18; TEMP 37.6; O2SAT 95
[2019-01-15 07:34] VITALS: BP 107/65; PULSE 68; RESP 17; TEMP 36.6; O2SAT 94
[2019-01-15 07:50] VITALS: O2SAT 94
--- NOTE | 2019-01-15 07:52 | W.PM.DS.N ---
Date of service: 01/15/19 Time of Service: 08:52 DS: Diagnosis Discharge Diagnosis (1) Primary osteoarthritis of left knee: Status: Chronic Discharge Plan Disposition Patient Disposition: HOME Condition: Good Discharge Details Reason For Visit: LEFT KNEE DJD Admit Date/Time: 01/13/19 07:27 Admit Provider: Andrez Rasmussen Attending Provider: Andrez Rasmussen Primary Care Provider: Gianna Huddleston [facility] Course Hospital Course: Patient was admitted to the medical/surgical floor following the procedure. It was tolerated well without any notable medical, surgical, or anesthetic complications. There was some initial pain and nausea which prevented more aggressive mobilization. Mobilization began postoperatively but increased on POD#2. The leo catheter was removed and voiding spontaneously. Vitals were stable. Physical therapy worked with the patient and was cleared for discharge home. No acute medical issues. Home Meds and New Rx's Prescriptions: New celecoxib 200 mg capsule 200 mg PO BID PRN (Reason: pain) Qty: 60 RF: 1 aspirin 81 mg tablet,delayed release (DR/EC) 81 mg PO BID Qty: 60 RF: 0 acetaminophen 500 mg tablet 1,000 mg PO Q8H PRN (Reason: pain) Qty: 90 RF: 3 gabapentin 300 mg capsule 300 mg PO QHS Qty: 7 RF: 0 oxycodone 5 mg tablet 5 mg PO Q4H Qty: 18 RF: 0 esomeprazole magnesium 20 mg capsule,delayed release(DR/EC) 20 mg PO DAILY Qty: 30 RF: 0 Continued meloxicam 7.5 mg tablet 7.5 mg PO BID PRN (Reason: pain) Qty: 180 RF: 3 albuterol sulfate [ProAir HFA] 90 mcg/actuation HFA aerosol inhaler 1 - 2 puff Inhalation Q4H PRN Qty: 1 RF: 12 ergocalciferol (vitamin D2) [Vitamin D2] 50,000 unit capsule 50,000 unit PO - Qty: 12 RF: 3 Discharge Instructions Additional Instructions: Dr. Rasmussen?s Total Knee Discharge Instructions Activity: The most important activity is to walk. You should try to take short walks a few times a day. It is important that when resting you work on keeping the knee straight. Avoid putting a pillow behind the knee as this will encourage flexion. Work on range of motion exercises as provided by Physical Therapy. - Start outpatient physical therapy within 2 weeks. You can go ahead and schedule this appointment. - You should wear the ANDREA hose on both legs for 4 weeks. Dressing: Keep the surgical dressing in place for at least one week. After the first week it may be removed and replace with light gauze and tape or nothing. It may get wet after 3 days but avoid soaking the dressing. If it gets wet, just lightly pat dry. Medications: - You should take Tylenol and anti-inflammatory (Celebrex) as your primary pain control medications. If CELEBREX IS TOO EXPENSIVE. There are other options, please call Dr. Rasmussen's office. - You have been prescribed a stronger pain medication (Oxycodone) for breakthrough pain, take as needed as prescribed. - You will be taking Aspirin 81mg twice a day for DVT prevention unless instructed otherwise. - If you have constipation you should take Colace or Miralax (both [id number]). It takes most people 3-4 days to have a bowel movement. Follow-up: 2 weeks Stand Alone Forms: Nursing Discharge Form Referrals: Andrez Rasmussen MD [ [facility] STAFF PHYSICIAN] - 01/30/19 10:15 am Activity:: Activity as Tolerated Equipment/Supplies:: Walker Diet:: As Tolerated Discharge Orders Discharge Orders: Discharge Order (Routine); Ordered 01/15/19 Ordered By: Andrez Rasmussen DS: Data Vitals/I&O Vitals and I&O: Vital Signs Temperature 36.6 C 01/15/19 07:34 Temperature Source Tympanic 01/15/19 07:34 Pulse 68 01/15/19 07:34 Pulse Rhythm Regular 01/15/19 07:40 Respiratory Rate 17 01/15/19 07:34 Respiratory Effort Non-Labored 01/15/19 07:40 Respiratory Depth Normal 01/15/19 07:40 Respiratory Pattern Normal 01/15/19 07:40 Blood Pressure 107/65 01/15/19 07:34 Pulse Oximetry 94 L 01/15/19 07:50 Respiratory End-tidal CO2 29 01/13/19 12:55 Oxygen Delivery Method Room Air 01/15/19 07:50 Oxygen Flow Rate 0 01/15/19 07:50 Pain Level 4 01/15/19 07:34 Comment 01/15/19 07:34 Intake & Output 01/14/19 01/14/19 01/15/19 11:59 23:59 11:59 Intake Total 1760.000 / 2580.000 820 / 2580.000 320 / 320 Output Total 2250 / 2650 400 / 2650 1100 / 1100 Balance -490.000 / -70.000 420 / -70.000 -780 / -780 Intake: IV 1400.000 / 1440.000 40 / 1440.000 20 / 20 Oral 360 / 1140 780 / 1140 300 / 300 Output: Urine 2250 / 2650 400 / 2650 1100 / 1100 Other: Urine Color Pale Yellow Yellow Yellow Urine Appearance Clear Clear Clear Urine Odor Normal Normal Voiding Methods Toilet Toilet Toilet [facility] Medical History 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) Anxiety (Chronic 12/01/15) Frostbite of face (Resolved 08/12/14) Gastroesophageal reflux disease with esophagitis (Chronic) Hiatal hernia (Chronic) Increased body mass index (Chronic 08/06/13) Knee pain (Chronic) Non-restorative sleep (Chronic 08/16/15) Old anterior cruciate ligament disruption (Chronic 08/07/07) Posttraumatic stress disorder (Chronic) Primary fibromyalgia syndrome (Chronic) Primary osteoarthritis of left knee (Chronic) Right hip pain (Chronic 04/05/15) Tendonitis of left rotator cuff (Chronic) Visual field defect (Chronic) Vitamin D deficiency (Chronic) Surgical History Bilateral salpingectomy with oophorectomy Cervical Conization/LEEP section S/P ACL reconstruction (Acute) Family History Mother Essential hypertension Father Hyperlipidemia Brain cancer Sister Depression Maternal Grandfather Stroke Essential hypertension Paternal Grandfather No problems noted. Maternal Grandmother Diabetes Paternal Grandmother Diabetes Breast cancer Son Depression Daughter Depression MATERNAL FAMILY HISTORY Diabetes Personal history of malignant neoplasm Depression Heart disease Hyperlipidemia PATERNAL FAMILY HISTORY Diabetes Personal history of malignant neoplasm Social History Smoking/Tobacco Use Status: Never Second Hand Exposure: Yes Alcohol Intake: current Alcohol Intake frequency: holidays/special occasions only Drug use: Never Substance use type: does not use Caregiver/Support person: No Household members: spouse Housing: house Communication Needs: Corrective Lenses Do you need help understanding health information?: Never Pets and animals: Yes Pets and animals: dog(s) Sexually active: Yes Do you think of yourself as: straight/heterosexual Current gender identity: female What is your relationship status?: How often do you talk on the phone with friends or family?: three or more times per week How often do you get together with friends or relatives?: twice per week How often do you attend christianity or latter-day services?: decline to answer Do you belong to any clubs or organized social groups?: no Panel score (0-1 are the most socially isolated patients): 2 What type of physical activity do you participate in: none Nany/Restorationist: No preference Special nany needs: No Seatbelt use: always Helmet use: No Drive intox or ride w/intox jitney driver: No
[2019-01-15 08:20] VITALS: TEMP 36.6
[2019-01-15] MEDS: Esomeprazole 40 MG CAPCR PO (08:20)
[2019-01-15] MEDS: Docusate Sodium 100 MG CAP PO (08:20)
[2019-01-15] MEDS: oxyCODONE 5 MG TAB PO ×2 (08:20→11:42)
[2019-01-15] MEDS: Celecoxib 200 MG CAP PO (08:20)
[2019-01-15] MEDS: Polyethylene Glycol 3350 17 GM PACKET PO (08:20)
[2019-01-15 08:22] VITALS: TEMP 36.6
[2019-01-15] MEDS: Acetaminophen 500 MG TAB 1000 MG PO (08:22)
[2019-01-15] MEDS: Dexamethasone 4 MG TAB PO (08:22)
[2019-01-15] MEDS: Aspirin E.C. 81 MG TABEC PO (08:22)
--- NOTE | 2019-01-15 09:41 | PT.INTREAT ---
Date of service: 01/15/19 Time of Service: 09:42 PT Notes Inpatient Physical Therapy Treatment Note [facility] Date: 01/15/2019 PRECAUTIONS: Fall, WBAT L SUBJECTIVE: Sandra states that she is feeling significantly better today, she feels her pain is more under control today and she feels that she is ready for discharge to home today. OBJECTIVE: PAIN: No c/o pain BED MOBILITY/TRANSFERS Supine-sit: I with HOB flat Sit-supine: I with HOB flat Sit-stand: SBA Stand-sit: SBA GAIT Assistive Device: FWW Weight bearing: WBAT L Assist: SBA Distance: 60' Deviation: Step-through gait pattern instruction THEREX: Patient completed a lower extremity strengthening and stabilization program, in a supine position, as per flow sheet. She is able to perform active SLR x10. Ends with cryocuff to R knee. STAIRS: Up/down 3x4 and 2x6 using B rails and a step-to pattern with supervision; up/down 3x4 and 2x6 using B ax cx and a step-to pattern with SBA ASSESSMENT: Patient tolerated session without complaint. Patient was able to tolerate a progression in gait distance utilizing step-through gait pattern with FWW support and supervision. Patient would benefit from continued gait and transfer training as well as strengthening for improved mobility and improved activity tolerance. PLAN: Continue with PTs POC TREATMENT CODE/TIME: 30 minutes; [id number], [id number]
[2019-01-15 12:04] VITALS: BP 119/79; PULSE 60; RESP 16; TEMP 37; O2SAT 98
--- NOTE | 2019-01-15 17:06 | CMDISCH_ITS ---
- If Service Date Differs Date of service: 01/15/19 Time of Service: 17:06 LACE Index Scoring Tool - Questions: Length of Stay (in days): 3 Acuity (Admit via E.D.?): No Care Management Discharge Reason for Hospitalization: Left Knee osteoarthritis status post TKA on 01/13/19 Discharge Plan: Sandra is being discharged home today, CM offered patient DME options for FWW she did choose [facility]. Sandra is aware that she will have a higher copay as [employer] is out of newtwork for her insurance. Sandra feels ready for discharge. She states that she will have support at home and plans to particpate in outpatient PT. No other services needed at time of discharge, she does have a plan to manage pain. Patient/Family Education Needs: Discharge education, limitations and follow up plan of care including ask me three. Services Needed at Discharge: DME Agency
--- NOTE | 2019-01-16 08:25 | INDS_ITS ---
Date of service: 01/16/19 PT Notes Inpatient Physical Therapy Discharge Summary Dates: 01/16/2019 Dates of Service: 01/13/2019 through 01/15/2019 This is a clinical summary of care provided on the duration of dates listed above. No charge was made in the completion of this documentation. Referring Doctor: Andrez Rasmussen MD PT Orders: PT CONSULT: Status post left TKA Precautions: Fall. Standard. Patient Profile/Admitting Diagnosis: Patient is a 48-year-old female with primary unilateral osteoarthritis of left knee status post total knee arthroplasty on postoperative day 3. PMHX: Osteoarthritis of left knee Osteoarthritis of right hip Social History/Home Situation: Patient lives with in a 1floor house with 2 steps to get onto a landing and another 2 steps to the entrance door, rails on both sides. She is independent with all aspects of ADLs without the need for an assistive ambulatory device nor adaptive equipment but recently had to use a cane as her left knee was starting to limit her functional mobility performance. Patient works at a [employer] in [place], [place] and does a lot of lifting and climbing ladders. Patient states however that she has enough time to recover from this surgery before she is expected back to work. She still drives. Current Functional Limitations: Need for assistance for all transfer and ambulation task using front wheeled walker Equipment Owned/DME: [place] Subjective: NT Objective: General Observation: NT Pain:NT Vital Signs: NT ROM: Right Upper Extremity: Shoulder Flexion WFL. Shoulder abduction WFL. Elbow flexion WFL. Wrist flexion WFL. Functional opening and closing of hand WFL. Left Upper Extremity: Shoulder Flexion WFL. Shoulder abduction WFL. Elbow flexion WFL. Wrist flexion WFL. Functional opening and closing of hand WFL. Right Lower Extremity: Hip flexion WFL. Hip abduction WFL. Knee flexion WFL. A nkle dorsiflexion WFL. Ankle plantarflexion WFL. Left Lower Extremity: Patient was able to perform 20 degrees of hip flexion while sitting at edge of bed before discomfort was felt. Knee flexion 0 to 89 degrees in supine with MANJINDER wraps and pain level limiting further movement, 0-78 degrees in sitting at edge of bed with MANJINDER wraps and pain level limiting further movement. Knee extension 78 to 0 degrees while sitting at edge of bed. Ankle dorsiflexion WFL. Ankle plantarflexion WFL. Strength: Right Upper Extremity: Shoulder flexors 5/5. Shoulder abductors 5/5. Elbow flexors 5/5. Elbow extensors 5/5. Application Services Manager strong. Left Upper Extremity: Shoulder flexors 5/5. Shoulder abductors 5/5. Elbow flexors 5/5. Elbow extensors 5/5. Application Services Manager strong. Right Lower Extremity: Hip flexors 5/5. Hip abductors 5/5. Knee flexors 5/5. Knee extensors 5/5. Ankle dorsiflexors 5/5. Ankle plantarflexors 5/5. Left Lower Extremity:Hip flexors 3-/5. Knee flexors 3-/5. Knee extensors 3+/5. Ankle dorsiflexors 5/5. Ankle plantarflexors 5/5. Sensation: Intact as to light pressure on right lower extremity, diminished on left lower extremity. Bed Mobility/Transfers: Rolling I Supine to sit I Sit to supine I Sit to stand S Stand to sit S Bed to chair S Chair to bed S Gait: Patient is able to tolerate 60?2 level surface ambulation with standby assist using step through gait pattern she is also able to negotiate three 4 inch steps and two 6 inch steps while holding onto bilateral rails using step to gait pattern requiring only supervision. Patient is able to negotiate three 4 inch steps and two 6 inch steps using bilateral axillary crutches using step to gait pattern with standby assist. Balance: Static Sitting: Good Dynamic Sitting: Good Static Standing: Fair Dynamic Standing: Fair Assessment: Patient is a 48-year-old female with primary unilateral osteoarthritis of left knee status post total knee arthroplasty on postoperative day 0. Patient presents with clinical signs and symptoms consistent with cu rrent/admitting diagnoses that have resulted to mobility limitations, gait instability, generalized weakness, and impairment of motor control as demonstrated by the following impairment level findings: 1. Decreased strength to L LE major muscle groups 2. Impaired sitting/standing balance 3. Impaired activity tolerance 4. Limitation of joint range of motion in L knee 5. Pain level of 9/10 on left knee with weight bearing Impairments are contributing to the following functional limitations: 1. Dependent bed mobility skills 2. Increased dependence with transfers 3. Inability to safely ambulate without assistive device and physical assistance 4. Increase completion time for mobility ADL performance 5. Increased fall risk 6. Inability to negotiate steps alone safely Goals: Goals X1 week 1. Supine-Sit independent MET 2. Sit-Supine independent MET 3. Sit-Stand independent NOT MET 4. Stand-Sit independent NOT MET 5. Bed-Chair independent NOT MET 6. Chair-Bed independent NOT MET 7. Independent gait on level surface with use of least restrictive device for at least 300 feet without report of pain nor dyspnea NOT MET 8. Independent stair negotiation while holding onto bilateral rails for at least 5 steps without report of pain nor dyspnea NOT MET 9. Independent with home exercise program NOT MET 10. Good static and dynamic standing balance/tolerance NOT MET DISCHARGE RECOMMENDATIONS: May benefit from skilled physical therapy services according to orthopedic surgeon timeline recommendations. Patient will be educated and trained on home exercise program per TKA exercise protocol in preparation for outpatient physical therapy services. TREATMENT CODE/TIME: RI Thank you very much for this referral. Kelsi Burrows PT, DPT, CLT [facility]
== END 2019-01-15 12:39 | disposition home or self-care (01) | DRG 470 ==
LOC: PDS 07:29 → MS 13:39
PROVIDERS: Admitting Provider Student in an Organized Health Care Education/Training Program; PCP Family Medicine; Visit Provider Student in an Organized Health Care Education/Training Program
PROC: 0SRD0J9 Replacement of Left Knee Joint with Synthetic Substitute, Cemented, Open Approach (ICD-10-PCS; CPT 27447; principal; 2019-01-13 09:45)
DX: M17.12 Unilateral primary osteoarthritis, left knee (principal); Z96.652 Presence of left artificial knee joint; G89.18 Other acute postprocedural pain; K21.9 Gastro-esophageal reflux disease without esophagitis; F41.9 Anxiety disorder, unspecified
CPT/HCPCS: 27447; 76942; 81025; 97110; 97162; 97530; NC; J0690; J1100; J1885; J2250; J2370; J2405; J7613; J8540

== ENCOUNTER 2019-01-30 11:23 | Outpatient (CLI) | payer OTHER, SELFPAY ==
--- NOTE | 2019-01-30 10:27 | DI.RAD_ITS ---
SYMPTOMS/DIAGNOSIS: S/P LT TKA BONE LENGTH STUDY: Standing AP views were performed from the pelvis through the ankles. There is a left total knee prosthesis. The hip joint spaces are not well seen due to patient body habitus. There are grossly well maintained. There is no significant leg length discrepancy at the level of the femoral heads. There are degenerative changes of the left knee. The ankles show mild degenerative changes. LEFT KNEE: The patient is status post placement of a left total knee prosthesis since the previous exam. The components appear well aligned. No abnormal bony lucencies are seen.
== END 2019-01-30 11:43 ==
PROVIDERS: PCP Family Medicine; Visit Provider Student in an Organized Health Care Education/Training Program
DX: M17.12 Unilateral primary osteoarthritis, left knee (principal); Z96.652 Presence of left artificial knee joint
CPT/HCPCS: 73560; 77073

== ENCOUNTER 2019-07-29 12:45 | Outpatient (REF) | payer OTHER, SELFPAY ==
[2019-07-29 14:16] LABS: Bilirubin Negative (Negative); Blood Trace-intact (Negative); Clarity Clear (Clear); Glucose Negative (Negative); Ketones Negative (Negative); Leukocyte Esterase Small (Negative); Nitrite Negative (Negative); Urobilinogen 0.2 EU/dL (Up TO 0.2); pH 7.5 (5-8)
[2019-07-29 14:32] LABS: Bacteria Negative HPF (Negative); C & S Indicated? C&S Done As Ordered; Casts Negative LPF (Negative); Crystals Negative HPF (Negative); Epithelial Cells Moderate HPF (Negative); Mucus Negative (Negative); Other Cells Few Renal (Negative); RBC 0-2 HPF (0-2)
== END 2019-07-29 13:05 ==
LOC: LBN 12:45
PROVIDERS: PCP Family Medicine; Visit Provider Family Medicine
DX: R10.30 Lower abdominal pain, unspecified (principal); R35.0 Frequency of micturition; N93.9 Abnormal uterine and vaginal bleeding, unspecified; R68.89 Other general symptoms and signs
CPT/HCPCS: 81003; 81015; 87070; 87086

== ENCOUNTER 2019-07-30 07:00 | Outpatient (CLI) | payer OTHER, SELFPAY ==
[2019-07-30 07:50] LABS: HCT 31.9 % (36.0-46.0); HGB 9.2 g/dL (12.0-15.5); Mean Corp. HGB Concentration 28.8 g/dL (32.0-36.0); Mean Corpuscular Hemoglobin 21.7 pg (27.0-33.0); Mean Corpuscular Volume 75.2 fL (80-95); Mean Platelet Volume 9.5 fL (8.0-11.0); Platelet Count 359 x1000/uL (130-400); RBC 4.24 m/cumm (4.00-5.20); RBC Distribution Width 17.5 % (11.7-14.6); White Blood Cell Count 6.62 k/cumm (4.4-10.8)
--- NOTE | 2019-07-30 08:45 | DI.US_ITS ---
EXAM: US PELVIS TRANSVAGINAL CLINICAL HISTORY: ABNL UTERINE BLEEDING, N93.9. TECHNIQUE: Ultrasound of the pelvic, both abdominal and transvaginal was performed using standard pr otocol. COMPARISON: ABD PELVIS WITH CONTRAST from 03/23/2010 FINDINGS: KIDNEYS: Kidneys are symmetric in size. No evidence of renal calculi. No evidence of hydronephrosis. No renal mass or cyst identified. UTERUS: Position: Anteverted. Size: 14.6 x 7 x 9.1 cm Endometrium: 0.8 cm. Normal for patient's menstrual status. Myometrium: Several hypoechoic masses. Largest lies in a sub endometrial location and measures 5.5 x 3 x 3.6 cm. Cervix: Multiple nabothian cysts. A 2.9 x 2 x 3.7 cm., Well-circumscribed, isoechoic mass. OVARIES: Right: 2.1 x 1.1 x 1.7 cm. Seen transabdominally only. Cyst or mass: None. Left: 4.5 x 3.6 x 3.7 cm Cyst or mass: 4.4 cyst with thin septation. DOPPLER: Color: Symmetric and uniform flow to both ovaries. No hyperemia. Duplex: Normal ovarian arterial waveforms visualized. CUL-DE-SAC: Free fluid: None. IMPRESSION: 1. Normal sonographic appearance of the kidneys. 2. Multiple uterine masses likely uterine fibroids. Circumscribed cervical mass which may represent a fibroid. If further imaging is warranted, an MRI of the pelvis should be considered. 3. 4.4 centimeter cyst on the left ovary. Likely physiologic.
[2019-07-30 09:50] LABS: ALT 14 U/L (14-59); AST 10 U/L (15-37); Albumin 3.3 g/dL (3.4-5.0); Alkaline Phosphatase 97 U/L (46-116); BUN 9 mg/dL (7-18); Bilirubin, Total 0.3 mg/dL (0.2-1.0); Calcium 8.6 mg/dL (8.5-10.1); Chloride 104 mmol/L (98-107); Glucose 93 mg/dL (74-106); Potassium 4.1 mmol/L (3.5-5.1); Sodium 140 mmol/L (136-145); TSH (W/Ref FT4) 2.26 uIU/mL (0.36-3.74); Total Protein 6.4 g/dL (6.4-8.2)
== END 2019-07-30 07:20 ==
PROVIDERS: PCP Family Medicine; Visit Provider Family Medicine
DX: N93.9 Abnormal uterine and vaginal bleeding, unspecified (principal); D25.9 Leiomyoma of uterus, unspecified; N83.292 Other ovarian cyst, left side
CPT/HCPCS: 36415; 80053; 85027; 76830; 76856; 84443

== ENCOUNTER 2019-08-04 12:14 | Outpatient (REF) | payer OTHER, SELFPAY ==
--- NOTE | 2019-08-04 11:00 | ENDOMET_PTH ---
PATIENT: Sandra Thompson LOC: [facility] U#:[id number] AGE/SX: 49/F ROOM: RE08/04/[address]: Adriel Olivo MD : 1970 BED: DIS: 08/04/2019 SPEC #: [id number] RECD: 08/04/19 12:44 STATUS: WEI REQ #: [id number] SONIA: 08/04/19 11:[address]: Adriel Olivo DEPT: Surgical Specimen RECD BY: Chelly Chávez ENTERED: 08/04/19 12:45 SP TYPE: Endomet OTHR DR: Gianna Huddleston MD, DC Tissues: 1 - ENDOMETRIUM BX/CURRETTE Procedures: GROSS AND MICRO LEVEL 4 Comments: [id number]
== END 2019-08-04 12:34 ==
LOC: LBN 12:14
PROVIDERS: PCP Family Medicine; Visit Provider Obstetrics & Gynecology
DX: N93.9 Abnormal uterine and vaginal bleeding, unspecified (principal); N85.01 Benign endometrial hyperplasia
CPT/HCPCS: 88305

== ENCOUNTER 2019-08-12 07:39 | Outpatient (CLI) | payer OTHER, SELFPAY ==
[2019-08-12 08:22] LABS: HCT 36.3 % (36.0-46.0); HGB 10.5 g/dL (12.0-15.5); Mean Corp. HGB Concentration 28.9 g/dL (32.0-36.0); Mean Corpuscular Hemoglobin 22.7 pg (27.0-33.0); Mean Corpuscular Volume 78.4 fL (80-95); Mean Platelet Volume 9.8 fL (8.0-11.0); Platelet Count 377 x1000/uL (130-400); RBC 4.63 m/cumm (4.00-5.20); RBC Distribution Width 21.1 % (11.7-14.6); White Blood Cell Count 7.78 k/cumm (4.4-10.8)
== END 2019-08-12 07:59 ==
PROVIDERS: PCP Family Medicine; Referring Provider Family Medicine; Visit Provider Obstetrics & Gynecology
DX: D25.9 Leiomyoma of uterus, unspecified (principal); N93.9 Abnormal uterine and vaginal bleeding, unspecified
CPT/HCPCS: 36415; 85027

== ENCOUNTER 2019-09-08 09:44 | Outpatient (CLI) | payer OTHER, SELFPAY ==
[2019-09-08 10:38] LABS: HCT 38.5 % (36.0-46.0); HGB 11.8 g/dL (12.0-15.5); Mean Corp. HGB Concentration 30.6 g/dL (32.0-36.0); Mean Corpuscular Hemoglobin 25.1 pg (27.0-33.0); Mean Corpuscular Volume 81.7 fL (80-95); Platelet Count 385 x1000/uL (130-400); RBC Distribution Width 22.4 % (11.7-14.6); White Blood Cell Count 8.07 k/cumm (4.4-10.8)
[2019-09-08 11:13] LABS: RBC 4.71 m/cumm (4.00-5.20)
== END 2019-09-08 10:04 ==
PROVIDERS: PCP Family Medicine; Visit Provider Obstetrics & Gynecology
DX: N92.6 Irregular menstruation, unspecified (principal); D25.9 Leiomyoma of uterus, unspecified; Z01.818 Encounter for other preprocedural examination; Z01.812 Encounter for preprocedural laboratory examination
CPT/HCPCS: 36415; 85027; 86850; 86900; 86901

== ENCOUNTER 2019-09-09 15:40 | Inpatient (IN) | payer OTHER, SELFPAY ==
[2019-09-08 10:11] VITALS: BP 139/83; PULSE 68; RESP 16; TEMP 36.6; O2SAT 99
[2019-09-09] VITALS (27 sets, daily range): BP systolic 81–147; BP diastolic 35–87; PULSE 60–88; RESP 12–21; TEMP 36.2–36.9; O2SAT 90–97
[2019-09-09] MEDS: Lactated Ringers 1,000 ML 125 ML IV ×5 (09:05→23:40)
[2019-09-09] MEDS: ceFAZolin 2 GM/50 ML BAG IVPB (09:27)
--- NOTE | 2019-09-09 13:00 | UTER_PTH ---
PATIENT: Sandra Thompson LOC: [facility] U#:[id number] AGE/SX: 49/F ROOM: OBS.306 RE09/09/[address]: Adriel Olivo MD : 1970 BED: A DIS: 09/12/2019 SPEC #: [id number] RECD: 09/09/19 16:25 STATUS: WEI REQ #: [id number] SONIA: 09/09/19 13:[address]: Adriel Olivo DEPT: Surgical Specimen RECD BY: Chelly Chávez ENTERED: 09/09/19 16:26 SP TYPE: UTER OTHR DR: Gianna Huddleston MD, DC Tissues: 1 - UTERUS W OR W/O OVARIES(NOT TUMOR/PROLAPSE) Procedures: GROSS AND MICRO LEVEL 5 Comments: [id number]
[2019-09-09] MEDS: Bupivacaine 0.25% Pres-Free 30 ML VIAL (15:00)
--- NOTE | 2019-09-09 15:00 | DI.RAD_ITS ---
EXAM: 2D digital imaging was performed. CLINICAL HISTORY: INCORRECT SURGICAL COUNT. COMPARISON: No exams were available for comparison TECHNIQUE: Supine views of the abdomen performed. FINDINGS: BOWEL GAS PATTERN: Nondistended. CALCIFICATIONS: No radiopaque calcifications. OSSEOUS STRUCTURES: Normal for age. OTHER FINDINGS: The distal tip of a nasogastric tube is seen at the level of the gastroesophageal armand ction and should be advanced into the stomach. No radiopaque foreign bodies are seen in the imaging field. Skin lisa are present overlying the pelvis. Visualized lung bases are clear. IMPRESSION: 1. Tip of the nasogastric tube is seen at the gastroesophageal junction and should be advanced into t he stomach. 2. No radiopaque foreign bodies are seen in the imaging field. DATA REPOSITORY: RADIATION DOSE DELIVERED:
[2019-09-09] MEDS: metroNIDAZOLE 500 MG/100 ML BAG 100 MG IVPB (19:23)
[2019-09-09 20:40] LABS: HGB 9.4 g/dL (12.0-15.5); Mean Corp. HGB Concentration 30.3 g/dL (32.0-36.0); Mean Corpuscular Hemoglobin 25.3 pg (27.0-33.0); Mean Corpuscular Volume 83.3 fL (80-95); Mean Platelet Volume 9.9 fL (8.0-11.0); Platelet Count 329 x1000/uL (130-400); RBC 3.72 m/cumm (4.00-5.20); RBC Distribution Width 21.8 % (11.7-14.6); White Blood Cell Count 19.28 k/cumm (4.4-10.8)
[2019-09-09] MEDS: Lactated Ringers 500 ML IV (20:45)
[2019-09-09] MEDS: levoFLOXacin 500 MG/100 ML BAG 100 MG IVPB (21:13)
[2019-09-10] VITALS (16 sets, daily range): BP systolic 99–119; BP diastolic 56–69; PULSE 59–76; RESP 16–22; TEMP 36.4–36.8; O2SAT 90–99
[2019-09-10] MEDS: Normal Saline Flush 10 ML SYR IV ×7 (01:27→20:00)
[2019-09-10] MEDS: metroNIDAZOLE 500 MG/100 ML BAG 100 MG IVPB ×3 (02:11→18:10)
[2019-09-10] MEDS: Ondansetron 4 MG/2 ML VIAL IVP ×2 (04:16→10:08)
[2019-09-10 05:36] LABS: Abs Immature Grans 0.04 k/cumm (0.0-0.09); Absolute Lymphocyte Count 0.97 k/cumm (1.2-3.4); Basophils % 0.1; HCT 28.6 % (36.0-46.0); HGB 8.6 g/dL (12.0-15.5); Immature Grans % 0.2 %; Mean Corp. HGB Concentration 30.1 g/dL (32.0-36.0); Mean Corpuscular Hemoglobin 25.1 pg (27.0-33.0); Mean Corpuscular Volume 83.4 fL (80-95); Monocytes % 4.8; Neutrophils % 88.9; Platelet Count 326 x1000/uL (130-400); RBC 3.43 m/cumm (4.00-5.20); RBC Distribution Width 21.8 % (11.7-14.6); White Blood Cell Count 16.13 k/cumm (4.4-10.8)
[2019-09-10 05:51] LABS: Absolute Basophil Count 0.02 k/cumm (0.0-0.2); Absolute Monocyte Count 0.77 k/cumm (0.11-0.7); Absolute Neutrophil Count 14.34 k/cumm (1.2-6.7)
[2019-09-10 05:56] LABS: Anisocytosis 2+; Hypochromasia 2+; Polychromasia Present
[2019-09-10] MEDS: MORPHine 2 MG/ML SYR IVP (06:55)
[2019-09-10] MEDS: Normal Saline 50 ML 200 ML (07:00)
[2019-09-10 07:25] LABS: Anion Gap 7.3 mmol/L (3-11); BUN 10 mg/dL (7-18); CO2 26.7 mmol/L (21.0-32.0); CREATININE 0.83 mg/dL (0.55-1.02); Calcium 7.7 mg/dL (8.5-10.1); Chloride 106 mmol/L (98-107); Glucose 121 mg/dL (74-106); Potassium 3.9 mmol/L (3.5-5.1); Sodium 140 mmol/L (136-145)
[2019-09-10] MEDS: Lactated Ringers 1,000 ML 125 ML IV ×2 (09:13→18:05)
[2019-09-10] MEDS: Calcium Carbonate *TUMS* 500 MG CHEW PO ×2 (14:31→22:08)
[2019-09-10] MEDS: Ketorolac 30 MG/ML VIAL IVP ×2 (14:32→20:00)
--- NOTE | 2019-09-10 15:30 | DI.US_ITS ---
EXAM: US RENAL CLINICAL HISTORY: Intraoperative bladder injury. TECHNIQUE: Sweeney scale, color and spectral Doppler were used. COMPARISON: No exams were available for comparison FINDINGS: Renal size in cm: Right: 10 left: 10.2 Echogenicity: Normal. Hydronephrosis: No. Cyst or mass: No. Nephrolithiasis: No. Other findings: A small fluid collection in the anterior abdomen. Bladder:Not distended. There is a Mittal catheter in place. Ureteral jets: Right: Not visualized. Left: Not visualized. Prevoid vol:Mittal catheter in place cc Postvoid vol:Mittal catheter in place cc DOPPLER FINDINGS: Unremarkable IMPRESSION: 1. Limited examination. 2. Small fluid collection in the anterior abdomen. This is nonspecific. CT scan of the abdomen and pelvis is recommended for further evaluation. DATA REPOSITORY:
[2019-09-10] MEDS: levoFLOXacin 500 MG/100 ML BAG 100 MG IVPB (20:00)
--- NOTE | 2019-09-10 20:14 | ROE_ITS ---
Date of service: 09/09/19 Time of Service: 20:00 Operative Note Operative Note DATE OF PROCEDURE: 09/09/19 PRE-OP DIAGNOSIS: 1. Fibroid uterus 2. Abnormal uterine bleeding 3. Blood loss anemia POST-OP DIAGNOSIS: other (1. Fibroid uterus 2. Abnormal uterine bleeding 3. Blood loss anemia 4. Incidental cystotomy) 1. Fibroid uterus 2. Abnormal uterine bleeding 3. Blood loss anemia 4. Incidental cystotomy 5. Cervical abscess PROCEDURE: 1. Laparoscopic assisted vaginal hysterectomy converted to abdominal hysterectomy 2. Bilateral salpingo-oophorectomy 3. Repair of incidental cystotomy 4. Postoperative cystoscopy SURGEON: Adriel Olivo ASSISTING SURGEON: Bhumika Estrada ANESTHESIA: GETA, local and spinal ESTIMATED BLOOD LOSS: 600 PATHOLOGY: other (Uterus, tubes and ovaries) COMPLICATIONS: Other (Incidental cystotomy) Patient was transported to: PACU Patient's condition: stable Findings: 1. Large lobular 14 to 16-week sized uterus with multiple fibroids 2. Normal fallopian tubes and ovaries bilaterally 3. 4 to 5 cm cervical abscess extending into the vesicocervical junction 4. 3 to 4 cm incidental cystotomy just superior to the bladder trigone 5. Postoperative cystoscopy demonstrating reflux of indigocarmine from both UOs Procedure Description: The patient was taken to the operating room and after spinal anesthesia and adequate general anesthesia the patient was placed in lithotomy position. The patient was prepped and draped in the usual sterile ma nner. A weighted speculum was placed in the vagina with good visualization of the cervix. A Hulka uterine manipulator was inserted without difficulty. Attention was then turned to the patient's abdomen. The skin and subcutaneous tissues at the umbilicus were infiltrated with 0.25% Marcaine solution. A small infraumbilical skin incision was then made with a #15 blade scalpel. Sharp dissection was carried down to the underlying layer of fascia. The fascia was grasped and elevated with two Eleuterio clamps. The fascia was incised with a scalpel and the peritoneum was entered sharply with a h emostat. Two S retractors were placed. The superior and inferior aspects of the fascia were tagged with 0 Vicryl suture. A 10 mm balloon port trocar was advanced through the incision. A pneumoperitoneum to approximately 15 mmHg was established. Two 5 mm trochars were placed under direct visualization in the right lower and left lower quadrants. Laparoscopic findings included a 14 to 16-week size uterus which was large and globular with multiple fibroids. The ovaries and fallopian tubes were noted to be normal in appearance bilaterally. Both ureters were identified at the pelvic brim. Dissection was first carried across the right infundibulopelvic ligament with the LigaSure device. Dissection was then carried across the round ligament and broad ligament to the level of the uterine vessels. The anterior leaf of the broad ligament was dissected to the midline creating the bladder flap. Attention was turned to the opposite side where a similar procedure was carried out. The bladder flap was reflected inferiorly. Attention was then turned to the vaginal portion of this procedure. A single-tooth tenaculum was placed on the cervix and immediately copious purulent material extruded from the tenaculum site. The tenaculum was removed and the abscess cavity was opened with Malone scissors. This was a large 4 to 5 cm abscess extending from the cervix into the vesicocervical space. A thorough irrigation was performed. Aerobic and anaerobic wound cultures were obtained. The abscess cavity was explored and irrigated until no further purulent material was identified. All instrumentation was removed that had been used during this phase and discarded. The vaginal prep was redone with a dilute chlorhexidine solution due to the patient's Betadine allergy. The paracervical tissues were infiltrated with 1% lidocaine solution with epinephrine. A circumferential incision was made at the cervicovaginal junction with a #10 blade scalpel. The anterior and posterior planes were developed with blunt and sharp dissection. The anatomy low on the cervix was distorted due to the multiple fibroids. There was some difficulty entering the cul-de-sac and identifying the peritoneum but this was entered successfully and a longbilled weighted speculum was inserted. Anteriorly the tissue planes were markedly distorted and fibrotic. Dissection was carried anteriorly and tissue planes were obliterated. The uterosacral ligaments were crossclamped bilaterally with Zeppelin clamps and tagged with 0 Vicryl in a Wolfgang stitch. The dissection in the vesicouterine space was extremely difficult and there was concern for bladder injury at this point of the procedure. The decision was made to convert to a laparotomy to complete the procedure. The patient was repositioned. The surgeon was regowned and gloved and attention was turned to the patient's abdomen. A Pfannenstiel incision was made with a #10 scalpel. Sharp dissection was carried down to the underlying layer of fascia. The fascia was incised in the midline with a scalpel and the incision was carried laterally in either direction with Malone scissors. The rectus muscles were divided along the linea alba with blunt and sharp dissection. The peritoneum was entered sharply and the incision was extended superiorly and inferiorly with sharp dissection. The bowel was packed into the upper abdomen with moist laparotomy sponges. A [employer] retractor was placed. Two additional pedicles on either side including the uterine vessels were crossclamped with Zeppelin clamps, transected with Malone scissors and suture-ligated with transfixed sutures of 0 Vicryl. Attachments were still present on the right side near the cervix but access was difficult due to the large size of the uterus. The uterine body was amputated at the cervix with the Bovie cautery. Two additional pedicles on the right side completed the dissection to the level of the cervix and vaginal cuff. The cystotomy was identified and was 3 to 4 cm in length parallel to the vaginal cuff and only 2 to 3 cm from the cuff. UOs were identified visually. 5 mL's of indigocarmine was administered intravenously. Efflux of indigocarmine was identified from both UOs. The cystotomy was closed initially with a running stitch of 4-0 Vicryl. A second layer oversewing the cystotomy was sutured with 3-0 Vicryl also in a running fashion. At this point the bladder was backfilled through the Mittal catheter with approximately 150 mL's of saline. A small leak was identified in the midline of the defect and a [id number] stitch of 3-0 Vicryl closed the defect which did not leak on a repeat backfill test. The vaginal cuff was closed with interrupted [id number] sutures of 0 Vicryl. Excellent hemostasis was noted at the vaginal cuff and at all other pedicles. A thorough irrigation was performed. A cystoscopy was then performed. A 5 mm 30 degree cystoscope with normal saline distention media was advanced through the urethra into the bladder. A second 5 mL infusion of indigocarmine was administered intravenously. There was strong efflux of indigocarmine from both UOs. The remainder of the bladder wall was inspected and was noted to be intact. The suture line was also well visualized and noted to be intact. The cystoscope was removed and a new Mittal catheter was replaced. The surgeon was regloved and attention turned to closure of the abdominal incision. The peritoneum was closed with a running stitch of 0 Vicryl. The subfascial space was thoroughly inspected and limited use of the Bovie cautery was used to obtain hemostasis. The fascia was closed with a running stitch of 0 Vicryl. The subcutaneous tissues were irrigated and closed with interrupted sutures of 0 Vicryl. The skin was closed with lisa. The fascia at the umbilicus was closed with a 2 previously placed sutures of 0 Vicryl. Each laparoscopic skin incision was closed with interrupted sutures of 4 Monocryl. 20 mL's of Exparel had been administered subcutaneously at the site of the Pfannenstiel incision as a local anesthetic. On my request an NG tube was placed by anesthesia. There was a discrepancy in the instrument count and the decision was made to obtain a postoperative abdominal x-ray which was performed showing no retained foreign body. The procedure was concluded at this point. The patient was transferred to PACU in stable condition.
--- NOTE | 2019-09-10 20:59 | W.PM.PROGNOT ---
Date of Service Date of service: 09/10/19 Time of Service: 20:59 Assessment and Plan Assessment and plan (1) Uterine leiomyoma: Status: Acute (2) Status post total abdominal hysterectomy and bilateral salpingo-oophorectomy (DEVIKA-BSO): Status: Acute Assessment and plan: LAVH converted to DEVIKA/BSO. NG tube removed this evening. Patient will be allowed clear liquids and a light regular meal this evening. Continue to advance diet slowly. Maintain Dilaudid CHIEF PHARMACIST this evening and will plan to switch to oral pain medication tomorrow. Will add IV Tylenol overnight x 2 doses. Encourage ambulation and use of incentive spirometer. (3) Intraoperative bladder injury: Status: Acute Assessment and plan: Maintain leo catheter with monitoring of output. May flush if catheter appears obstructed. (4) Abscess of vagina: Status: Acute Assessment and plan: Continue Levaquin / Flagyl Subjective Subjective Interval history since last seen: Pain was moderately controlled overnight. A Dilaudid CHIEF PHARMACIST was added this morning due to increased pain. She has minimal vaginal bleeding overnight she did have nausea with a single episode of emesis in the evening and another episode in the afternoon. Urine output was adequate overnight and the Leo catheter showed no hematuria. NG tube remained in place through the day and was removed in the evening. The patient did ambulate a number of times today in the hallway. She has been afebrile. A renal ultrasound was obtained in order to evaluate for postoperative ureteral obstruction or leak from the cystotomy. The ultrasound did not demonstrate any hydronephrosis and no significant free fluid in the pelvis. Laboratory studies returned a creatinine of 0.8. Exam GI Other: Incisions are bandaged and are clean and dry. Other: Leo catheter remains in place with moderate concentrated urine but no hematuria Objective Objective Clinical Data: Abnormal lab results 09/10/19 09/10/19 Range/Units 05:00 05:25 WBC 16.13 H (4.4-10.8) k/cumm RBC 3.43 L (4.00-5.20) m/cumm Hgb 8.6 L (12.0-15.5) g/dL Hct 28.6 L (36.0-46.0) % MCH 25.1 L (27.0-33.0) pg MCHC 30.1 L (32.0-36.0) g/dL RDW 21.8 H (11.7-14.6) % Absolute Neutrophils 14.34 H (1.2-6.7) k/cumm Absolute Lymphocytes 0.97 L (1.2-3.4) k/cumm Absolute Monocytes 0.77 H (0.11-0.7) k/cumm Glucose 121 H (74-106) mg/dL Calcium 7.7 L (8.5-10.1) mg/dL Vital Signs Temperature 97.5 F L 09/10/19 15:50 Temperature Source Oral 09/10/19 15:50 Pulse 64 09/10/19 15:50 Pulse Rhythm Regular 09/10/19 20:28 Respiratory Rate 16 09/10/19 15:50 Respiratory Effort Non-Labored 09/10/19 20:28 Respiratory Depth Normal 09/10/19 20:28 Respiratory Pattern Normal 09/10/19 20:28 Blood Pressure 111/59 L 09/10/19 15:50 Pulse Oximetry 93 L 09/10/19 15:50 Respiratory End-tidal CO2 29 09/09/19 16:45 Oxygen Delivery Method Room Air 09/10/19 20:55 Oxygen Flow Rate 0 09/10/19 20:55 Pain Level 7 09/10/19 15:50 Comment 09/10/19 12:05 Intake & Output 09/09/19 09/10/19 09/10/19 23:59 11:59 23:59 Intake Total 3314.583 / 3364.583 2400 / 4040 1640 / 4040 Output Total 2210 / 2210 2275 / 3150 875 / 3150 Balance 1104.583 / 1154.583 125 / 890 765 / 890 Weight 211 lb 13.828 oz Intake: IV 3314.583 / 3364.583 2200 / 3400 1200 / 3400 Oral 200 / 640 440 / 640 Output: Gastric Drainage 375 / 375 Left Nare 375 / 375 Urine 1200 / 1200 1600 / 2275 675 / 2275 Emesis 300 / 500 200 / 500 Estimated Blood Loss 1000 / 1000 Other: Urine Color Pale Yellow Dark Parisa Urine Appearance Clear Clear Clear Emesis Description None Clear/Water Clear/Water Gastric Occult Blood Left Nare Positive Laboratory Results WBC 16.13 k/cumm (4.4-10.8) H 09/10/19 05:25 RBC 3.43 m/cumm (4.00-5.20) L 09/10/19 05:25 Hgb 8.6 g/dL (12.0-15.5) L 09/10/19 05:25 Hct 28.6 % (36.0-46.0) L 09/10/19 05:25 MCV 83.4 fL (80-95) 09/10/19 05:25 MCH 25.1 pg (27.0-33.0) L 09/10/19 05:25 MCHC 30.1 g/dL (32.0-36.0) L 09/10/19 05:25 RDW 21.8 % (11.7-14.6) H 09/10/19 05:25 Plt Count 326 x1000/uL (130-400) 09/10/19 05:25 MPV 10.0 fL (8.0-11.0) 09/10/19 05:25 Immature Gran % 0.2 % 09/10/19 05:25 Neutrophils % 88.9 09/10/19 05:25 Lymphocytes % 6.0 09/10/19 05:25 Monocytes % 4.8 09/10/19 05:25 Eosinophils % 0.0 09/10/19 05:25 Basophils % 0.1 09/10/19 05:25 Absolute Neutrophils 14.34 k/cumm (1.2-6.7) H 09/10/19 05:25 Absolute Lymphocytes 0.97 k/cumm (1.2-3.4) L 09/10/19 05:25 Absolute Monocytes 0.77 k/cumm (0.11-0.7) H 09/10/19 05:25 Absolute Eosinophils 0.00 k/cumm (0.0-0.7) 09/10/19 05:25 Absolute Basophils 0.02 k/cumm (0.0-0.2) 09/10/19 05:25 RBC Morphology See below 09/10/19 05:25 Polychromasia Present 09/10/19 05:25 Hypochromasia 2+ 09/10/19 05:25 Anisocytosis 2+ 09/10/19 05:25 Sodium Cancelled 09/10/19 07:14 Potassium Cancelled 09/10/19 07:14 Chloride Cancelled 09/10/19 07:14 Carbon Dioxide Cancelled 09/10/19 07:14 Anion Gap Cancelled 09/10/19 07:14 BUN Cancelled 09/10/19 07:14 Creatinine Cancelled 09/10/19 07:14 Estimated GFR/1.73 m2 Cancelled 09/10/19 07:14 Glucose Cancelled 09/10/19 07:14 Calcium Cancelled 09/10/19 07:14
[2019-09-10] MEDS: ACETAMINOPHEN 1,000 MG/100 ML BTL 400 MG IVPB (22:20)
[2019-09-10] MEDS: FAMOTIDINE 20 MG/50 ML BAG 200 MG IVPB (22:45)
[2019-09-11] VITALS (8 sets, daily range): BP systolic 100–131; BP diastolic 57–68; PULSE 62–68; RESP 14–20; TEMP 36.6–36.9; O2SAT 89–96
[2019-09-11] MEDS: Normal Saline Flush 10 ML SYR IV ×7 (02:00→17:58)
[2019-09-11] MEDS: Ketorolac 30 MG/ML VIAL IVP ×3 (02:00→14:08)
[2019-09-11] MEDS: metroNIDAZOLE 500 MG/100 ML BAG 100 MG IVPB ×3 (02:15→17:58)
[2019-09-11] MEDS: Ondansetron 4 MG/2 ML VIAL IVP ×2 (05:00→13:24)
[2019-09-11] MEDS: ACETAMINOPHEN 1,000 MG/100 ML BTL 400 MG IVPB (07:15)
--- NOTE | 2019-09-11 07:16 | W.PM.PROGNOT ---
Date of Service Date of service: 09/11/19 Time of Service: 07:17 Assessment and Plan Assessment and plan (1) Abscess of vagina: Status: Acute (2) Intraoperative bladder injury: Status: Acute (3) Status post total abdominal hysterectomy and bilateral salpingo-oophorectomy (DEVIKA-BSO): Status: Acute Assessment and plan: Will discontinue MOLDED CANDLES WICKER today. Encourage continue ambulation and use of incentive spirometer. Patient may shower this morning and remove all dressings. Advance diet slowly. Subjective Subjective Interval history since last seen: The patient does report some increasing pain in her abdomen as well as distention. She reports passing flatus but no bowel movement yet. She did ambulate in the cuevas multiple times yesterday. Some nausea overnight but no vomiting. Exam GI Other: Hypoactive bowel sounds throughout. Some mild increased distention. Dressings remain in place Other: Leo catheter draining danilo urine Objective Objective Clinical Data: Abnormal lab results 09/10/19 Range/Units 05:00 Glucose 121 H (74-106) mg/dL Calcium 7.7 L (8.5-10.1) mg/dL Vital Signs Temperature 97.9 F 09/11/19 03:25 Temperature Source Oral 09/11/19 03:25 Pulse 65 09/11/19 03:25 Pulse Rhythm Regular 09/10/19 20:28 Respiratory Rate 16 09/11/19 05:20 Respiratory Effort Non-Labored 09/10/19 20:28 Respiratory Depth Normal 09/10/19 20:28 Respiratory Pattern Normal 09/10/19 20:28 Blood Pressure 100/58 L 09/11/19 03:25 Pulse Oximetry 95 09/11/19 03:34 Respiratory End-tidal CO2 29 09/09/19 16:45 Oxygen Delivery Method Nasal Cannula 09/11/19 05:20 Oxygen Flow Rate 2 09/11/19 05:20 Pain Level 7 09/11/19 05:20 Comment 09/11/19 03:25 Intake & Output 09/10/19 09/10/19 09/11/19 11:59 23:59 11:59 Intake Total 2400 / 4640 2240 / 4640 1550 / 1550 Output Total 2275 / 3700 1175 / 3700 825 / 825 Balance 125 / 940 1065 / 940 725 / 725 Intake: IV 2200 / 3650 1450 / 3650 1100 / 1100 Oral 200 / 990 790 / 990 450 / 450 Output: Gastric Drainage 375 / 375 Left Nare 375 / 375 Urine 1600 / 2825 975 / 2825 825 / 825 Emesis 300 / 500 200 / 500 Other: Urine Color Yellow Dark Danilo Dark Danilo Urine Appearance Clear Clear Clear Comment pt complaining of more discomfort with leo, RN adjusted leg strap and position of where leo strapped on, pt states the adjustment feels better Emesis Description Clear/Water Clear/Water Laboratory Results WBC 16.13 k/cumm (4.4-10.8) H 09/10/19 05:25 RBC 3.43 m/cumm (4.00-5.20) L 09/10/19 05:25 Hgb 8.6 g/dL (12.0-15.5) L 09/10/19 05:25 Hct 28.6 % (36.0-46.0) L 09/10/19 05:25 MCV 83.4 fL (80-95) 09/10/19 05:25 MCH 25.1 pg (27.0-33.0) L 09/10/19 05:25 MCHC 30.1 g/dL (32.0-36.0) L 09/10/19 05:25 RDW 21.8 % (11.7-14.6) H 09/10/19 05:25 Plt Count 326 x1000/uL (130-400) 09/10/19 05:25 MPV 10.0 fL (8.0-11.0) 09/10/19 05:25 Immature Gran % 0.2 % 09/10/19 05:25 Neutrophils % 88.9 09/10/19 05:25 Lymphocytes % 6.0 09/10/19 05:25 Monocytes % 4.8 09/10/19 05:25 Eosinophils % 0.0 09/10/19 05:25 Basophils % 0.1 09/10/19 05:25 Absolute Neutrophils 14.34 k/cumm (1.2-6.7) H 09/10/19 05:25 Absolute Lymphocytes 0.97 k/cumm (1.2-3.4) L 09/10/19 05:25 Absolute Monocytes 0.77 k/cumm (0.11-0.7) H 09/10/19 05:25 Absolute Eosinophils 0.00 k/cumm (0.0-0.7) 09/10/19 05:25 Absolute Basophils 0.02 k/cumm (0.0-0.2) 09/10/19 05:25 RBC Morphology See below 09/10/19 05:25 Polychromasia Present 09/10/19 05:25 Hypochromasia 2+ 09/10/19 05:25 Anisocytosis 2+ 09/10/19 05:25 Sodium Cancelled 09/10/19 07:14 Potassium Cancelled 09/10/19 07:14 Chloride Cancelled 09/10/19 07:14 Carbon Dioxide Cancelled 09/10/19 07:14 Anion Gap Cancelled 09/10/19 07:14 BUN Cancelled 09/10/19 07:14 Creatinine Cancelled 09/10/19 07:14 Estimated GFR/1.73 m2 Cancelled 09/10/19 07:14 Glucose Cancelled 09/10/19 07:14 Calcium Cancelled 09/10/19 07:14
[2019-09-11] MEDS: Calcium Carbonate *TUMS* 500 MG CHEW PO ×2 (10:33→20:26)
[2019-09-11] MEDS: Lactated Ringers 1,000 ML 125 ML IV ×2 (10:34→19:10)
[2019-09-11] MEDS: levoFLOXacin 500 MG/100 ML BAG 100 MG IVPB (19:56)
[2019-09-11] MEDS: Ibuprofen 600 MG TAB PO (20:17)
[2019-09-11] MEDS: FAMOTIDINE 20 MG/50 ML BAG 200 MG IVPB (22:02)
[2019-09-12 00:27] VITALS: BP 122/68; PULSE 78; RESP 18; TEMP 36.7; O2SAT 97
[2019-09-12] MEDS: metroNIDAZOLE 500 MG/100 ML BAG 100 MG IVPB (01:48)
[2019-09-12] MEDS: Ibuprofen 600 MG TAB PO (01:49)
--- NOTE | 2019-09-12 02:49 | NUR.NOTE ---
Nursing Note:09/12/19 @ 0020 Pt c/o increased pain, offered percocet, pt declined at this time d/t empty stomach and does not wish to eat anything. 0140 Pt in 04/16 pain, adamantly declines percocet and food, pt doesn't feel ibuprofen will be adequate for pain, will give IV morphine at this time along with ibuprofen.
[2019-09-12 04:07] VITALS: BP 109/60; PULSE 76; RESP 16; TEMP 36.7; O2SAT 93
[2019-09-12] MEDS: Lactated Ringers 1,000 ML 125 ML IV (05:01)
[2019-09-12 07:25] VITALS: BP 109/68; PULSE 63; RESP 20; TEMP 36.7; O2SAT 95
[2019-09-12 09:08] LABS: Abs Immature Grans 0.02 k/cumm (0.0-0.09); Absolute Basophil Count 0.01 k/cumm (0.0-0.2); Absolute Eosinophil Count 0.02 k/cumm (0.0-0.7); Absolute Lymphocyte Count 1.13 k/cumm (1.2-3.4); Absolute Monocyte Count 0.38 k/cumm (0.11-0.7); Absolute Neutrophil Count 6.44 k/cumm (1.2-6.7); Basophils % 0.1; Eosinophils % 0.3; HCT 27.6 % (36.0-46.0); HGB 8.2 g/dL (12.0-15.5); Immature Grans % 0.3 %; Lymphocytes % 14.1; Mean Corp. HGB Concentration 29.7 g/dL (32.0-36.0); Mean Corpuscular Hemoglobin 25.2 pg (27.0-33.0); Mean Corpuscular Volume 84.9 fL (80-95); Mean Platelet Volume 9.7 fL (8.0-11.0); Monocytes % 4.8; Neutrophils % 80.4; Platelet Count 309 x1000/uL (130-400); RBC 3.25 m/cumm (4.00-5.20)
[2019-09-12 09:13] LABS: ALT 16 U/L (14-59); AST 21 U/L (15-37); Albumin 2.4 g/dL (3.4-5.0); Alkaline Phosphatase 58 U/L (46-116); Anion Gap 5.4 mmol/L (3-11); BUN 6 mg/dL (7-18); Bilirubin, Total 0.3 mg/dL (0.2-1.0); CO2 29.6 mmol/L (21.0-32.0); CREATININE 0.81 mg/dL (0.55-1.02); Calcium 7.3 mg/dL (8.5-10.1); Chloride 106 mmol/L (98-107); Glucose 128 mg/dL (74-106); Potassium 3.6 mmol/L (3.5-5.1); Sodium 141 mmol/L (136-145); Total Protein 5.4 g/dL (6.4-8.2)
--- NOTE | 2019-09-12 09:49 | PGE_ITS ---
Date of Service Date of service: 09/12/19 Time of Service: 09:50 Assessment and Plan Assessment and plan (1) Intraoperative bladder injury: Status: Acute (2) Status post total abdominal hysterectomy and bilateral salpingo-oophorectomy (DEVIKA-BSO): Status: Acute Assessment and plan: We will switch all medications to oral medications at this point. Saline lock IV. Discharge teaching such as maintenance of Leo catheter to be reviewed today and patient to be equipped with a leg bag. The patient was given detailed postoperative instructions and will follow-up with me on Saturday. (3) Abscess of vagina: Status: Acute Subjective Subjective Interval history since last seen: Doing well today. The patient reports some decreasing abdominal pain and bloating today. She reports passing flatus but has not yet had a bowel movement. She had no nausea overnight and no vomiting. No fevers or chills. Urinary catheter was draining well overnight and urine output was adequate. The patient desires discharge home. Objective Objective Clinical Data: Abnormal lab results 09/12/19 09/12/19 Range/Units 08:50 08:50 RBC 3.25 L (4.00-5.20) m/cumm Hgb 8.2 L (12.0-15.5) g/dL Hct 27.6 L (36.0-46.0) % MCH 25.2 L (27.0-33.0) pg MCHC 29.7 L (32.0-36.0) g/dL RDW 22.0 H (11.7-14.6) % Absolute Lymphocytes 1.13 L (1.2-3.4) k/cumm BUN 6 L (7-18) mg/dL Glucose 128 H (74-106) mg/dL Calcium 7.3 L (8.5-10.1) mg/dL Total Protein 5.4 L (6.4-8.2) g/dL Albumin 2.4 L (3.4-5.0) g/dL Vital Signs Temperature 98.1 F 09/12/19 07:25 Temperature Source Oral 09/12/19 07:25 Pulse 63 09/12/19 07:25 Pulse Rhythm Regular 09/12/19 07:25 Respiratory Rate 20 09/12/19 07:25 Respiratory Effort Non-Labored 09/12/19 07:25 Respiratory Depth Shallow 09/12/19 07:25 Respiratory Pattern Normal 09/12/19 07:25 Blood Pressure 109/68 09/12/19 07:25 Pulse Oximetry 95 09/12/19 07:25 Respiratory End-tidal CO2 29 09/09/19 16:45 Oxygen Delivery Method Room Air 09/12/19 07:25 Oxygen Flow Rate 0 09/12/19 07:25 Pain Level 8 09/12/19 07:25 Comment 09/12/19 04:07 Intake & Output 09/11/19 09/11/19 09/12/19 11:59 23:59 11:59 Intake Total 1650 / 3150 1500 / 3150 2825.00 / 2825.00 Output Total 1075 / 2325 1250 / 2325 1425 / 1425 Balance 575 / 825 250 / 825 1400.00 / 1400.00 Intake: IV 1200 / 2300 1100 / 2300 2100.00 / 2100.00 Oral 450 / 850 400 / 850 725 / 725 Output: Urine 1075 / 2225 1150 / 2225 1425 / 1425 Emesis 100 / 100 Other: Urine Color Light Parisa [place] Light Parisa Urine Appearance Hematuria Hematuria Clear Comment pt complaining of more discomfort with leo, RN adjusted leg strap and position of where leo strapped on, pt states the adjustment feels better Emesis Description Undigested Food None Clear/Water Laboratory Results WBC 8.00 k/cumm (4.4-10.8) 09/12/19 08:50 RBC 3.25 m/cumm (4.00-5.20) L 09/12/19 08:50 Hgb 8.2 g/dL (12.0-15.5) L 09/12/19 08:50 Hct 27.6 % (36.0-46.0) L 09/12/19 08:50 MCV 84.9 fL (80-95) 09/12/19 08:50 MCH 25.2 pg (27.0-33.0) L 09/12/19 08:50 MCHC 29.7 g/dL (32.0-36.0) L 09/12/19 08:50 RDW 22.0 % (11.7-14.6) H 09/12/19 08:50 Plt Count 309 x1000/uL (130-400) 09/12/19 08:50 MPV 9.7 fL (8.0-11.0) 09/12/19 08:50 Immature Gran % 0.3 % 09/12/19 08:50 Neutrophils % 80.4 09/12/19 08:50 Lymphocytes % 14.1 09/12/19 08:50 Monocytes % 4.8 09/12/19 08:50 Eosinophils % 0.3 09/12/19 08:50 Basophils % 0.1 09/12/19 08:50 Absolute Neutrophils 6.44 k/cumm (1.2-6.7) 09/12/19 08:50 Absolute Lymphocytes 1.13 k/cumm (1.2-3.4) L 09/12/19 08:50 Absolute Monocytes 0.38 k/cumm (0.11-0.7) 09/12/19 08:50 Absolute Eosinophils 0.02 k/cumm (0.0-0.7) 09/12/19 08:50 Absolute Basophils 0.01 k/cumm (0.0-0.2) 09/12/19 08:50 RBC Morphology See below 09/10/19 05:25 Polychromasia Present 09/10/19 05:25 Hypochromasia 2+ 09/10/19 05:25 Anisocytosis 2+ 09/10/19 05:25 Sodium 141 mmol/L (136-145) 09/12/19 08:50 Potassium 3.6 mmol/L (3.5-5.1) 09/12/19 08:50 Chloride 106 mmol/L (98-107) 09/12/19 08:50 Carbon Dioxide 29.6 mmol/L (21.0-32.0) 09/12/19 08:50 Anion Gap 5.4 mmol/L (3-11) 09/12/19 08:50 BUN 6 mg/dL (7-18) L 09/12/19 08:50 Creatinine 0.81 mg/dL (0.55-1.02) 09/12/19 08:50 Estimated GFR/1.73 m2 >= 60.00 (mL/min/1.73m2) 09/12/19 08:50 Glucose 128 mg/dL (74-106) H 09/12/19 08:50 Calcium 7.3 mg/dL (8.5-10.1) L 09/12/19 08:50 Total Bilirubin 0.3 mg/dL (0.2-1.0) 09/12/19 08:50 AST 21 U/L (15-37) 09/12/19 08:50 ALT 16 U/L (14-59) 09/12/19 08:50 Alkaline Phosphatase 58 U/L (46-116) 09/12/19 08:50 Total Protein 5.4 g/dL (6.4-8.2) L 09/12/19 08:50 Albumin 2.4 g/dL (3.4-5.0) L 09/12/19 08:50
[2019-09-12] MEDS: metroNIDAZOLE 500 MG TAB PO (10:30)
[2019-09-12 12:10] VITALS: BP 128/72; PULSE 72; RESP 20; TEMP 36.6; O2SAT 96
== END 2019-09-12 12:25 | disposition home or self-care (01) | DRG 742 ==
LOC: OBS 17:46
PROVIDERS: Admitting Provider Obstetrics & Gynecology; PCP Family Medicine; Visit Provider Obstetrics & Gynecology
PROC: 0UT9FZZ Resection of Uterus, Via Natural or Artificial Opening With Percutaneous Endoscopic Assistance (ICD-10-PCS; CPT 58150; principal; 2019-09-09 10:00)
DX: N93.8 Other specified abnormal uterine and vaginal bleeding (principal); N99.71 Accidental puncture and laceration of a genitourinary system organ or structure during a genitourinary system procedure; D25.1 Intramural leiomyoma of uterus; D25.0 Submucous leiomyoma of uterus; D25.2 Subserosal leiomyoma of uterus; N83.8 Other noninflammatory disorders of ovary, fallopian tube and broad ligament; N83.291 Other ovarian cyst, right side; N83.12 Corpus luteum cyst of left ovary; D50.0 Iron deficiency anemia secondary to blood loss (chronic); K21.9 Gastro-esophageal reflux disease without esophagitis; N72 Inflammatory disease of cervix uteri
CPT/HCPCS: 58150; 51860; 36415; 76770; 80048; 80053; 85027; 99233; 74018; 85025; 87070; 87075; 87205; 88307; J0131; J0690; J1100; J1170; J1885; J1956; J2001; J2250; J2270; J2405; J2704; J3010

== ENCOUNTER 2019-09-24 00:31 | Outpatient (CLI) | payer OTHER, SELFPAY ==
--- NOTE | 2019-09-24 12:00 | DI.US_ITS ---
EXAM: US RENAL CLINICAL HISTORY: bladder [id number] TECHNIQUE: Ultrasound performed using standard protocol. COMPARISON: US RENAL from 09/10/2019 FINDINGS: Renal ultrasound was performed with additional evaluation of the catheterized urinary bladder. Kidne ys are normal in size and shape and there is no evidence of a renal mass, hydronephrosis, or nephroli thiasis by ultrasound criteria. Urinary bladder was filled via indwelling Mittal catheter. Prevoid volume was 194 cc. The patient re moved this urinary bladder catheter and bladder emptied completely. No free fluid was identified in the pelvis either prior to or post removal of the catheter. IMPRESSION: No evidence of urinary tract obstruction. No evidence of fluid in cul-de-sac or peritoneal cavity prior to or following catheter removal and vo iding. DATA REPOSITORY:
== END 2019-09-24 00:51 ==
PROVIDERS: PCP Family Medicine; Visit Provider Obstetrics & Gynecology
DX: N99.81 Other intraoperative complications of genitourinary system (principal)
CPT/HCPCS: 76770

== ENCOUNTER 2020-01-14 09:54 | Outpatient (CLI) | payer OTHER, SELFPAY ==
--- NOTE | 2020-01-14 09:00 | DI.RAD_ITS ---
EXAM: XR KNEE LT 2V AP,LAT INDICATION: 1st post op. COMPARISON: CR XR knee LT 1V from 01/30/2019 TECHNIQUE: 2D digital imaging was performed. FINDINGS: There has been no change in the total knee prosthesis or surrounding bone. No joint effusion is vis ible. DATA REPOSITORY: RADIATION DOSE DELIVERED:
== END 2020-01-14 10:14 ==
PROVIDERS: PCP Family Medicine; Referring Provider Family Medicine; Visit Provider Student in an Organized Health Care Education/Training Program
DX: Z96.652 Presence of left artificial knee joint (principal); Z47.1 Aftercare following joint replacement surgery
CPT/HCPCS: 73560

== ENCOUNTER 2020-02-09 21:42 | Outpatient (REF) | payer OTHER, SELFPAY ==
[2020-02-09 21:51] LABS: HCT 39.3 % (36.0-46.0); MCH 25.7 pg (27.0-33.0); MCHC 30.5 % (32.0-36.0); MCV 84.2 fL (80-95); MPV 10.5 fL (8.0-11.0); Platelet Count 353 10^3/uL (130-400); RBC 4.67 10^6/uL (3.93-5.22); RDW 16.9 % (11.7-14.6); WBC 6.28 10^3/uL (4.4-10.8)
[2020-02-10 08:28] LABS: Ferritin 13 ng/mL (8-252)
[2020-02-10 10:15] LABS: Iron 36 ug/dL (50-170)
[2020-02-11 06:08] LABS: Vitamin D 25 Total 31.7 ng/ml (30-100)
== END 2020-02-09 22:02 ==
LOC: LBN 21:42
PROVIDERS: PCP Family Medicine; Visit Provider Family Medicine
DX: D50.0 Iron deficiency anemia secondary to blood loss (chronic) (principal); E55.9 Vitamin D deficiency, unspecified
CPT/HCPCS: 82306; 85027; 82728; 83540

== ENCOUNTER 2020-05-12 10:23 | Outpatient (CLI) | payer OTHER, SELFPAY ==
--- NOTE | 2020-05-12 08:30 | DI.RAD_ITS ---
EXAM: XR KNEE RT 4V AP,LAT,JAZZY,PAT CLINICAL HISTORY: f/u R knee pain. TECHNIQUE: 2D digital imaging was performed. COMPARISON: CR XR standing alignment from 01/30/2019 FINDINGS: Moderate degenerative changes are seen in the right knee characterized by joint space narrowing and p eriarticular spurring. The findings are most marked in the femoral tibial joint. No acute fracture or dislocation. No significant joint effusion. The soft tissues are unremarkable. IMPRESSION: Moderate degenerative changes of the right knee. DATA REPOSITORY: RADIATION DOSE DELIVERED:
== END 2020-05-12 10:43 ==
PROVIDERS: PCP Family Medicine; Referring Provider Family Medicine; Visit Provider Student in an Organized Health Care Education/Training Program
DX: M17.11 Unilateral primary osteoarthritis, right knee (principal)
CPT/HCPCS: 73564

== ENCOUNTER 2020-07-22 09:51 | Outpatient (CLI) | payer OTHER, SELFPAY ==
--- NOTE | 2020-07-22 09:00 | DI.RAD_ITS ---
EXAM: XR LUMBAR SPINE COMPLETE CLINICAL HISTORY: lumbar spine pain. TECHNIQUE: 2D digital imaging was performed. COMPARISON: No exams were available for comparison FINDINGS: There is no evidence of fracture, listhesis, or pars defects. Disc spaces exhibit normal height thro ughout the lumbosacral spine. Facet joints unremarkable. Bone density is normal. No osseous lesion s. Sacroiliac joints unremarkable. IMPRESSION: No significant radiograph findings DATA REPOSITORY: RADIATION DOSE DELIVERED:
== END 2020-07-22 10:11 ==
PROVIDERS: PCP Family Medicine; Referring Provider Family Medicine; Visit Provider Physician Assistant
DX: M54.5 Low back pain (principal)
CPT/HCPCS: 72110

== ENCOUNTER 2020-08-11 00:45 | Outpatient (CLI) | payer OTHER, SELFPAY ==
--- NOTE | 2020-08-11 08:45 | DI.MRI_ITS ---
EXAM: MR LUMBAR SPINE WO CLINICAL HISTORY: PAIN, LUMBAR RADICULOPATHY,M54.16. TECHNIQUE: Multiplanar multisequence MRI of the Lumbar spine was performed. COMPARISON: CR XR LUMBAR SPINE COMPLETE from 07/22/2020 FINDINGS: Bones: The last intervertebral disc space is designated the L5/S1 level for the numbering purpose of this examination. The vertebral body heights are well maintained. Alignment is satisfactory. There is a round focus of hyperintense signal on both the T1 and T2 weighted images in the L1 vertebral bod y most suggestive of a fatty rest or hemangioma. There are mild degenerative endplate signal changes from L2-L3 through L5-S1. Cord: The conus tip ends at the T12 level. It is of normal size and signal intensity. T12-L1: No disc herniations or bulges are present. No central spinal canal or neural foraminal stenos is. L1-2: No disc herniations or bulges are present. No central spinal canal or neural foraminal stenosis . L2-3: No disc herniations or bulges are present. No central spinal canal or neural foraminal stenosis . L3-4: No disc herniations or bulges are present. No central spinal canal or neural foraminal stenosis . L4-5: There is a mild diffuse disc bulge eccentric to the right. There is very mild narrowing of the central spinal canal. There is mild right neural foraminal narrowing. No significant left neural f oraminal stenosis is seen. L5-S1: No disc herniations or bulges are present. No central spinal canal or neural foraminal stenosi s. Soft tissues: The visualized SI joints and sacrum are well maintained. The paraspinal soft tissues ar e unremarkable. IMPRESSION: Small diffuse disc bulge eccentric to the right at L4-L5 which causes mild narrowing of the central s danilo canal and mild right neural foraminal narrowing. DATA REPOSITORY:
== END 2020-08-11 00:46 | disposition home or self-care (01) ==
LOC: DI 00:45
PROVIDERS: PCP Family Medicine; Visit Provider Student in an Organized Health Care Education/Training Program
DX: M54.16 Radiculopathy, lumbar region (principal); M51.26 Other intervertebral disc displacement, lumbar region
CPT/HCPCS: 72148

== ENCOUNTER 2020-10-20 01:42 | Outpatient (CLI) | payer OTHER, SELFPAY ==
--- NOTE | 2020-10-20 10:50 | DI.MAMMO_ITS ---
EXAM: MG MAMMO SCREENING CLINICAL HISTORY: screening,Z12.39. TECHNIQUE: Bilateral full field digital CC and MLO mammographic images were obtained with 3D tomosyn thesis and utilizing computer aided detection (CAD). COMPARISON: Prior mammograms dating back to 2012. There are no interval mammograms since 2013. FINDINGS: There are no new spiculated masses nor malignant appearing microcalcification groups. There is no significant architectural distortion nor skin thickening-retraction. IMPRESSION: No radiographic evidence of malignancy. BI-RADS Category 1 - Negative Breast Density - Category B - Scattered areas of fibroglandular density Breast density Category C or D implies that the patient has dense breast tissue. Dense breast tissue can make it harder to find cancer on a mammogram. Dense breast tissue is also associated with an incr eased risk of breast cancer. This information about the result of the mammogram report was provided to the patient to raise their awareness. Use this report when you speak with the patient about their risks for breast cancer, which includes their family history. At that time, you may recommend additional screening tests (Ultrasoun d or MRI) as these tests may add significant information. A negative radiographic report should not delay biopsy if a dominant or clinically suspicious mass is present. Up to ten percent of cancers are not identified on mammography. A negative report may reinforce clinical impression. Adenosis and dense breasts may obscure an underlying neoplasm. False positive reports average 6 to 10%. Patient will receive a letter notifying them of these results.
== END 2020-10-20 02:02 ==
PROVIDERS: PCP Family Medicine; Visit Provider Family Medicine
DX: Z12.31 Encounter for screening mammogram for malignant neoplasm of breast (principal)
CPT/HCPCS: 77063; 77067

== ENCOUNTER 2020-11-17 02:12 | Outpatient (CLI) | payer OTHER, SELFPAY ==
[2020-11-17 08:50] LABS: HGB 12.7 g/dL (11.2-15.7); MCH 29.2 pg (27.0-33.0); MCHC 31.8 % (32.0-36.0); MPV 9.7 fL (8.0-11.0); Platelet Count 297 10^3/uL (130-400); RBC 4.35 10^6/uL (3.93-5.22); RDW 12.7 % (11.7-14.6); RDW-SD 43.2 fL; WBC 6.01 10^3/uL (4.4-10.8)
[2020-11-17 09:56] LABS: Calculated LDL 92 mg/dL (<100); Cholesterol 163 mg/dL (<200); HDL Cholesterol 49 mg/dL (40-60); TSH (W/Ref FT4) 1.85 uIU/mL (0.36-3.74); Triglyceride 110 mg/dL (<150)
[2020-11-17 10:10] LABS: Vitamin D 25 Total 31.3 ng/mL (30-100)
== END 2020-11-17 02:13 | disposition home or self-care (01) ==
LOC: LBO 02:12
PROVIDERS: PCP Family Medicine; Visit Provider Family Medicine
DX: D50.9 Iron deficiency anemia, unspecified (principal); E55.9 Vitamin D deficiency, unspecified; Z00.00 Encounter for general adult medical examination without abnormal findings
CPT/HCPCS: 36415; 80061; 82306; 85027; 84443

== ENCOUNTER 2020-12-06 07:46 | Outpatient (CLI) | payer OTHER, SELFPAY ==
[2020-12-06 07:57] VITALS: BP 129/79; PULSE 85; RESP 18; TEMP 36.8; O2SAT 100
[2020-12-06] MEDS: Dexamethasone Sod. Phos./Pres-Free 10 MG/ML VIAL IJ (08:31)
--- NOTE | 2020-12-06 08:32 | DI.RAD_ITS ---
Exam(s) XR PAIN CLINIC LUMBAR SP 2V EXAM: XR PAIN CLINIC LUMBAR SP 2V CLINICAL HISTORY: Dx: Lumbar Radiculopathy TECHNIQUE: 2D and realtime digital imaging was performed. COMPARISON: No exams were available for comparison FINDINGS: C-arm fluoroscopy was utilized by Dr. Ta during reported lumbar epidural steroid injection. Hard buffer copper y shows needle placement just to the right of midline at the L4-5 level. IMPRESSION: RADIATION DOSE DELIVERED: awa [place]=11.0 mGy
[2020-12-06 08:39] VITALS: BP 142/87; PULSE 81; RESP 17; O2SAT 99
--- NOTE | 2020-12-06 08:50 | PDOC.PAIN ---
Pain Clinic Procedure Note Procedure Note Procedure Note: Lumbar Epidural Steroid Injection Procedure Note Pre-operative diagnosis: lumbar radiculopathy Post-operative diagnosis: same as above COMMENTS: patient reports average 9 out of 10 pain involving her back with radiation down right hip, right lateral thigh, stopping around the right knee. She has been evaluated by orthopedic clinic and is status post right greater trochanteric bursa injection which provided minimal pain relief. She is currently working with PT. She was also diagnosed with right ITB syndrome. She reports onset of her back and right leg pain was in 06/2020 when she sustained a work related injury, she fell while on a ladder at work. MRI L spine shows a small right dic herniation at L4-5 level, no noticeable central or foraminal stenosis seen. THAI RODNEY has been referred to the [facility] for lumbar epidural steroid injection. The patient was greeted by the nurse who verified patients name and . Patient was then taken to the fluoroscopy suite. The patient was interviewed and the medial record reviewed. There were no medical, pharmacologic, radiographic, or other structural contraindications to attempting fluoroscopically guided lumbar epidural steroid injection. Risks and expected side effects as well as potential benefits of the procedure were reviewed and voiced concerns expressed. The patient consent form was signed and witnessed. Standard patient time-out procedure was performed. The patient was placed in the prone position on the fluoroscopy table and automated blood pressure cuff and pulse oximeter applied. The skin entry point for entering/approaching the epidural space by a L4-5 and marked. Following thorough chlorhexadine preparation of the skin and draping and 1% lidocaine infiltration of the skin entry point and subcutaneous tissues, a 18 gauge 5'' Touhy needle was placed under fluoroscopic guidance and with loss of resistance technique into the epidural space. Needle tip placement and depth were aided and confirmed by fluoroscopy. There was no paresthesia or return of blood or CSF through the needle.Omnipaque 240 was omitted during this procedure due to anaphylactic reaction with previous oral contrast. Patient had airway difficulty and iodinated contrast is listed as allergy. 15mg of preservative free dexamethasone was injected. patient reports feeling pressure down the right leg with injection of medication. this was followed by 0.5cc of preservative free 1% lidocaine and 1cc of preservative free normal saline. There was not any unusual discomfort expressed by THAI RODNEY. Patient's vital signs were stable throughout the procedure and were as recorded in nursing records. Follow up plans and appointments were discussed with patient. Post procedure instruction was given as documented in nursing records and having met discharge criteria and was discharged from the [facility]. COMMENTS: If this procedure is helpful, it can be completed up to 3 times per 12 months. Pre-procedure VAS score 9 out of 10, post-procedure VAS score 3/10. Margarito Ta MD Pain Management
== END 2020-12-06 07:47 | disposition home or self-care (01) ==
LOC: PC 07:49
PROVIDERS: PCP Family Medicine; Visit Provider Internal Medicine
DX: M54.16 Radiculopathy, lumbar region (principal)
CPT/HCPCS: 62323; 72100

== ENCOUNTER 2021-08-04 13:30 | Outpatient (REF) | payer OTHER, SELFPAY ==
[2021-08-04 20:49] LABS: Abs Immature Grans 0.02 10^3/uL (0.0-0.06); Absolute Basophil Count 0.05 10^3/uL (0.0-0.2); Absolute Eosinophil Count 0.07 10^3/uL (0.0-0.7); Absolute Lymphocyte Count 1.96 10^3/uL (1.2-3.4); Basophils % 0.7; HCT 41.8 % (36.0-46.0); HGB 13.3 g/dL (11.2-15.7); Immature Grans % 0.3; Lymphocytes % 27.2; MCH 28.9 pg (27.0-33.0); MCHC 31.8 % (32.0-36.0); MCV 90.7 fL (80-95); MPV 10.2 fL (8.0-11.0); Monocytes % 5.6; Neutrophils % 65.2; Nucleated RBC 0 %; Platelet Count 330 10^3/uL (130-400); RBC 4.61 10^6/uL (3.93-5.22); RDW 12.7 % (11.7-14.6); RDW-SD 41.7 fL
[2021-08-04 21:30] LABS: ALT 22 U/L (14-59); AST 16 U/L (15-37); Albumin 3.8 g/dL (3.4-5.0); Alkaline Phosphatase 110 U/L (46-116); Anion Gap 10.4 mmol/L (3-11); BUN 14 mg/dL (7-18); Bilirubin, Total 0.3 mg/dL (0.2-1.0); CO2 26.6 mmol/L (21.0-32.0); CREATININE 0.7 mg/dL (0.55-1.02); Chloride 103 mmol/L (98-107); Glucose 90 mg/dL (74-106); Lipase 87 U/L (73-393); Potassium 4.2 mmol/L (3.5-5.1); Sodium 140 mmol/L (136-145); Total Protein 7.2 g/dL (6.4-8.2)
== END 2021-08-04 13:31 | disposition home or self-care (01) ==
LOC: NCHCN 13:30
PROVIDERS: Visit Provider Family Medicine
DX: R10.9 Unspecified abdominal pain (principal)
CPT/HCPCS: 80053; 83690; 85025

== ENCOUNTER 2021-12-12 18:36 | Outpatient (REF) | payer OTHER, SELFPAY ==
[2021-12-12 14:50] LABS: ALT 28 U/L (14-59); AST 22 U/L (15-37); Albumin 3.9 g/dL (3.4-5.0); Alkaline Phosphatase 135 U/L (46-116); Anion Gap 12.7 mmol/L (3-11); BUN 14 mg/dL (7-18); Bilirubin, Total 0.3 mg/dL (0.2-1.0); CO2 24.3 mmol/L (21.0-32.0); CREATININE 0.7 mg/dL (0.55-1.02); Calcium 8.6 mg/dL (8.5-10.1); Chloride 103 mmol/L (98-107); Glucose 95 mg/dL (74-106); Potassium 4.3 mmol/L (3.5-5.1); Sodium 140 mmol/L (136-145); TSH (W/Ref FT4) 1.71 uIU/mL (0.36-3.74); Total Protein 7.1 g/dL (6.4-8.2)
[2021-12-12 22:21] LABS: Rheumatoid Factor <8.6 IU/mL (<12.0)
[2021-12-13 09:24] LABS: Cyclic Citrullinated Peptide <2.5 U/mL (<5.0)
[2021-12-13 14:53] LABS: ANA Interpretation Negative (Negative)
== END 2021-12-12 18:37 | disposition home or self-care (01) ==
LOC: NCHCN 18:36
PROVIDERS: Visit Provider Family Medicine
DX: M79.7 Fibromyalgia (principal); F32.9 Major depressive disorder, single episode, unspecified; M54.59 Other low back pain
CPT/HCPCS: 80053; 86200; 84443; 86038; 86431

== ENCOUNTER 2021-12-21 18:27 | Outpatient (REF) | payer OTHER, SELFPAY ==
[2021-12-21 14:58] LABS: Abs Immature Grans 0.03 10^3/uL (0.0-0.06); Absolute Basophil Count 0.04 10^3/uL (0.0-0.2); Absolute Lymphocyte Count 1.59 10^3/uL (1.2-3.4); Absolute Monocyte Count 0.49 10^3/uL (0.1-0.8); Absolute Neutrophil Count 4.59 10^3/uL (1.2-6.7); Basophils % 0.6; Eosinophils % 1.5; HGB 12.6 g/dL (11.2-15.7); Immature Grans % 0.4; Lymphocytes % 23.2; MCHC 30.7 % (32.0-36.0); MCV 91 fL (80-95); MPV 10.2 fL (8.0-11.0); Monocytes % 7.2; Neutrophils % 67.1; Platelet Count 321 10^3/uL (130-400); WBC 6.84 10^3/uL (4.4-10.8)
[2021-12-21 15:29] LABS: ESR 25 mm/hr (0-30)
== END 2021-12-21 18:28 | disposition home or self-care (01) ==
LOC: NCHCN 18:27
PROVIDERS: Visit Provider Family Medicine
DX: M79.7 Fibromyalgia (principal); F32.9 Major depressive disorder, single episode, unspecified; F43.10 Post-traumatic stress disorder, unspecified; E66.9 Obesity, unspecified
CPT/HCPCS: 85652; 85025

== ENCOUNTER 2022-05-10 06:06 | Day surgery (SDC) | payer OTHER, SELFPAY ==
--- NOTE | 2022-05-09 20:35 | W.PM.DSUDISC ---
Date of service: 05/10/22 Time of Service: 07:59 Discharge Plan Disposition Patient Disposition: HOME Condition: Good Discharge Details Reason For Visit: Screening colonoscopy Attending Provider: Gilmer Giles Primary Care Provider: Sathish Jasmine Home Meds and New Rx's Prescriptions: Continued albuterol sulfate [ProAir HFA] 90 mcg/actuation HFA aerosol inhaler 1 - 2 puff Inhalation Q4H PRN Qty: 8.5 12RF acetaminophen 500 mg tablet 1,000 mg PO Q8H PRN (Reason: pain) Qty: 90 3RF doxepin 25 mg Capsule 25 mg PO QHS meloxicam 7.5 mg tablet 1 tab PO DAILY PRN Label Comments: TAKE 1 TABLET BY MOUTH DAILY pantoprazole 40 mg tablet,delayed release (DR/EC) 1 tab PO DAILY Label Comments: TAKE 1 TABLET BY MOUTH EVERY DAY cholecalciferol (vitamin D3) [Vitamin D3] 10 mcg (400 unit) Capsule 20 mcg PO DAILY Discontinued bisacodyl [Dulcolax (bisacodyl)] 5 mg tablet,delayed release (DR/EC) 5 mg PO ONCE Qty: 4 0RF Rx Instructions: Take according to provider's instructions for colonoscopy prep. polyethylene glycol 3350 17 gram/dose powder 17 g PO ONCE Qty: 238 0RF Rx Instructions: To be taken as directed by prescriber's office for colonoscopy prep. Discharge Instructions Instructions: Diverticulosis (DC) Additional Instructions: 1. If tolerated, consume a soft, low fiber diet for 1-2 days. 2[address] Do not drive, drink alcohol, operate machinery, make critical decisions, or do activities that require coordination or balance for 24 hours. 3. Because air was put into your colon during the procedure, expelling air from your rectum (passing gas or farting) is normal. 4. You may not have a bowel movement for 1-3 days because of the colonoscopy prep. This is normal. 5. Go directly to the emergency room if you notice any of the following: Develop chills (warm to touch), or if you have a thermometer and your temperature is above 101 Difficulty breathing or difficultly swallowing Persistent vomiting Severe abdominal pain, other than gas cramps Severe chest pain Black, tarry stools Any bleeding ? exceeding one tablespoon 6. Call your physician if the site where your intravenous was started becomes red, swollen, painful, and warm to touch. 7. Your physician has reviewed your pre-procedure medications. Please continue to take those medications as previously ordered. You will be given specific information/education regarding any changes to your medications before leaving. Activity:: Activity as Tolerated Diet:: As Tolerated Discharge Orders Discharge Orders: Discharge Order (Routine); Ordered 05/09/22 Ordered By: Gilmer Giles DS: Diagnosis Discharge Diagnosis (1) Diverticulosis: Status: Acute Asessment and Plan: You have very mild diverticulosis. He should consume a diet rich in fiber, and stay well-hydrated. Try to have large soft bowel movements, and do not strain or spend extended times on the toilet
--- NOTE | 2022-05-09 20:37 | W.COLOREPORT ---
Date of service: 05/10/22 Time of Service: 07:58 Colonoscopy Report Date of procedure: 05/10/22 Pre-op diagnosis general: Screening colonoscopy routine health maintenance Post-op diagnosis procedure note: other (Very mild diverticulosis) Procedure: Screening colonoscopy Surgeon: Gilmer Giles Anesthesia Type: General:No Airway Estimated blood loss (mL): 0 Pathology: none sent Complications: None Disposition: no change Indications: Screening colonoscopy for routine health maintenance Prep: Miralax/Dulcolax Procedure Start Time: 07:27 Procedure End Time: 07:49 Retraction Time: 16 Findings: Very mild sigmoid diverticulosis Procedure Description: After the induction of monitored anesthetic care, and with the patient in left lateral decubitus position, I began by performing an external anorectal exam.? Perineum and skin were normal, as was the anal verge.? There was no evidence of external hemorrhoids.? Next, I performed a digital rectal exam.? I did not appreciate any abnormal findings.? Next, I advanced a colonoscope into the rectal vault.? I performed retroflexion.? I did not excellent see signs of pathologic internal hemorrhoids.? Using insufflation, I then advanced the colonoscope beyond the rectal folds and into the sigmoid colon before advancing towards the cecum.? The quality of the prep was .? The scope was noted to be in the cecum by identification of the ileocecal valve and appendiceal orifice.? I then began withdrawing the colonoscope using repeated irrigation as necessary for full evaluation of the colonic mucosa. ?Once the scope was withdrawn to the level of the rectum, great care was taken to examine portions of the rectal folds.? Finally, the scope was withdrawn and the patient was brought to the same-day surgery recovery unit as the anesthetic wore off. ?The findings and instructions were shared with the patient prior to discharge. The colonoscopy is normal, and she can follow-up for her next screening the next 10 years.
[2022-05-10 06:29] VITALS: BP 137/84; PULSE 75; RESP 16; TEMP 36.6; O2SAT 98
[2022-05-10] MEDS: Lactated Ringers 1,000 ML 80 ML IV (06:35)
--- NOTE | 2022-05-10 07:03 | ANES.PREOP_ITS ---
General Info Date of Service Date Performed: 05/10/22 Height: 5 ft 2 in Weight: 102.9 kg Body Mass Index (BMI): 41.5 Surgical Procedure: Operation Date: 05/10/22 07:35 Proposed Procedure Side Surgeon jeff Giles MD Meds Allergies and Home Medications Allergies Allergy/AdvReac Type Severity Reaction Status Date / Time Iodinated Contrast Media Allergy Severe Anaphylaxis Verified 05/10/22 06:25 [Iodinated Contrast Media - IV Dye] iopamidol Allergy Severe Anaphylaxis Verified 05/10/22 06:25 pantoprazole Allergy Intermediate Rash Verified 05/10/22 06:25 citalopram AdvReac Severe suicidal Verified 05/10/22 06:25 buspirone AdvReac Intermediate made Verified 05/10/22 06:25 suicidal per pt. DL Penicillins AdvReac Unknown Ineffective, Verified 05/10/22 06:25 doesn't work Home Medication Medication Instructions Recorded acetaminophen 500 mg tablet 1,000 mg PO Q8H PRN pain #90 tabs 01/15/19 albuterol sulfate 90 mcg/actuation 1 - 2 puff inhalation Q4H PRN #8.5 12/22/20 aerosol inhaler (ProAir HFA) grams cholecalciferol (vitamin D3) 10 20 mcg PO DAILY 05/08/22 mcg (400 unit) capsule (Vitamin D3) doxepin 25 mg capsule 25 mg PO QHS 05/08/22 meloxicam 7.5 mg tablet 1 tab PO DAILY PRN 05/08/22 pantoprazole 40 mg tablet,delayed 1 tab PO DAILY 05/08/22 release Current Visit Medications: Current Medications Generic Name Dose Route Start Last Admin Trade Name Yovannyq PRN Reason Stop Dose Admin Hyoscyamine Sulfate 0.125 mg 05/09/22 20:38 Hyoscyamine 0.125 Mg Sl/Oral/Chew SL DIRECTED PRN Ringer's Solution 1,000 mls @ 80 mls/hr 05/10/22 06:00 05/10/22 06:35 IV 06/08/22 23:59 80 mls/hr INFUSION RAMESH Administration IV Miscellaneous Supplies 1 each 05/10/22 06:00 Iv Access IV 06/08/22 23:59 DIRECTED RAMESH Ondansetron HCl 4 mg 05/09/22 20:38 Ondansetron 4 Mg/2 Ml Vial IVP Q4H PRN PRN Nausea / Vomiting Sodium Chloride 0 ml 05/10/22 06:00 Normal Saline Flush 10 Ml Syr IV 06/08/22 23:59 PRN PRN Sodium Chloride 0 ml 05/10/22 06:00 Normal Saline 10 Ml Vial IJ 06/08/22 23:59 DIRECTED PRN Sterile Water 0 ml 05/10/22 06:00 Water,Injection,Sterile 10 Ml Vial IJ 06/08/22 23:59 DIRECTED PRN PFSH Active Problems Active Problems: Problem Status Onset Code Screening for colon cancer Z12.11 Medical History Medical History (Updated 05/10/22 @ 06:20 by Katelyn Shelton) Abdominal pain Abnormal uterine bleeding (AUB) Abscess of vagina Adult night terror (08/16/15) Anxiety (12/01/15) Asthma Balance problem Chronic blood loss anemia Chronic pelvic pain in female Depressive disorder (08/07/07) Encounter for annual physical exam Encounter for screening colonoscopy Family history of malignant neoplasm of breast (04/01/14) FH: total abdominal hysterectomy and bilateral salpingo-oophorectomy Frostbite of face (08/12/14) Gastroesophageal reflux disease with esophagitis Greater trochanteric bursitis of right hip Hiatal hernia Iliotibial band syndrome of right side Increased body mass index (08/06/13) Intraoperative bladder injury Knee pain RIGHT Non-restorative sleep (08/16/15) sleep study negative 11/20 Old anterior cruciate ligament disruption (08/07/07) left; medial meniscal Posttraumatic stress disorder Pt. states when sleeping make noise before touching her to wake her, if touched without alerting pt, she states she can sometimes get violent Primary fibromyalgia syndrome Primary osteoarthritis of left knee s/p L TKA 01/13/19 Primary osteoarthritis of right knee Injected: 05/12/2020 Pyloric ulcer associated with Helicobacter pylori (08/07/07) Right hip pain (04/05/15) Right knee pain Right lumbar radiculopathy Routine gynecological examination Tendonitis of left rotator cuff Urinary incontinence Uterine bleeding Uterine leiomyoma (06/06/05) Visual field defect H/A SCOTOMA Vitamin D deficiency Medical History Comments:: son will wake up violent' Surgical History Surgical History Cervical Conization/LEEP section History of arthroscopy of knee History of section History of total left knee replacement (TKR) (01/13/19) Dr. Rasmussen. Left S/P ACL reconstruction With medial meniscus tear S/P LEEP (status post loop electrosurgical excision procedure) Status post total abdominal hysterectomy and bilateral salpingo-oophorectomy (DEVIAK-BSO) Status post total left knee replacement Tobacco Smoking/Tobacco Use Status: Never Second hand exposure: Yes Alcohol Alcohol Intake: never Substance Use Substance use: Never Substance use type: does not use Prental History History 2 Para Hx # Term Pregnancies Multiple births Hx # Pregnancies Ectopic pregnancies AB induced Hx Number of Living Children AB spontaneous Vital Signs and Lab Results Vital Signs Most Recent Vital Signs in EMR: Most Recent Vital Signs Temp Pulse Resp BP Pulse Ox 36.6 C 75 16 137/84 98 05/10/22 06:29 05/10/22 06:29 05/10/22 06:29 05/10/22 06:29 05/10/22 06:29 Lab Results Blood Type / Crossmatch: No Data to Display Complete Blood Count: No Data to Display Complete Metabolic Panel: No Data to Display Liver Function Panel: No Data to Display Coagulation Panel: No Data to Display Cardiac Panel: No Data to Display Arterial Blood Gas: No Data to Display Venous Blood Gas: No Data to Display Pancreas Panel: No Data to Display Thyroid Panel: No Data to Display Infectious Disease: No Data to Display Blood Cultures: No Data to Display Toxicology Panel: No Data to Display Panel: No Data to Display Anesthesia Assessment and Plan Anesthesia History Personal History: No History of Anesthesia Complications Family History: No Family History of Anesthesia Complications Exercise Tolerance Exercise Tolerance: Metabolic Equivalents<4 Pertinent Negatives Pertinent Negatives: No Symptoms of GERD (Well controlled woth meds), No Major Cardiovascular Symptoms or Complaints, No Major Pulmonary Symptoms or Complaints and No History of CVA/TIA Cardiac & Pulmonary Exam Cardiac Exam: Normal S1/S2 Heart Sounds Pulmonary Exam: Clear Bilateral Breath Sounds Implantable Cardiac Device Does patient have a Pacemaker or an ICD?: No Airway Exam Known Difficult Airway: No Mallampati Class: 3 Mouth Opening: Normal (> 3cm) Thyromental Distance: Greater than 3 cm Neck Range of Motion: Full ROM Neck Circumference: Normal Teeth Condition: Generalized Poor Dentition (None loose, 2 chipped teeth front u pper and upper right) ASA Classification ASA Score: ASA 3 Emergency Case?: No NPO Status NPO Status: NPO Clears >2 hours, Solids >8 hours Status Status: History of Hysterectomy Anesthesia Plan Resuscitation Status: Full Code Anesthesia Technique: General Anesthesia Airway Planned: Natural Airway Monitors Used: Standard Monitors
[2022-05-10 07:04] VITALS: BMI 41.5
[2022-05-10 07:49] VITALS: BP 137/84; PULSE 75; RESP 16; TEMP 36.6; O2SAT 96
--- NOTE | 2022-05-10 08:12 | W.ANESPOSTOP ---
Postoperative Evaluation Date, Time and Location Date Performed: 05/10/22 Time Performed: 07:49 Patient Location: Day Surgery Unit Vital Signs Most Recent Imported Vital Signs: Most Recent Vital Signs Temp Pulse Resp BP Pulse Ox 36.6 C 75 16 137/84 96 05/10/22 07:49 05/10/22 07:49 05/10/22 07:49 05/10/22 07:49 05/10/22 07:49 Pain Score Most Recent Pain Score: Most Recent Pain Score Pain Level 0 05/10/22 07:49 Assessment Mental Status: Awake (Alert & Oriented to Patient Baseline) Airway and Respiratory Function: Patent airway with normal (patient baseline) respiratory exam Cardiovascular Function: Hemodynamically Stable Hydration Status: Adequately Hydrated Nausea & Vomiting: No Nausea or Vomiting Pain: Pt. Denies Any Pain Peripheral Nerve Block: Patient did not receive a nerve block
[2022-05-10 08:16] VITALS: BP 139/82; PULSE 75; RESP 18; TEMP 36.2; O2SAT 99
== END 2022-05-10 08:43 | disposition home or self-care (01) ==
PROVIDERS: PCP Family Medicine; Visit Provider Surgery
PROC: 0DJD8ZZ Inspection of Lower Intestinal Tract, Via Natural or Artificial Opening Endoscopic (ICD-10-PCS; CPT 45378; principal; 2022-05-10 07:30)
DX: Z12.11 Encounter for screening for malignant neoplasm of colon (principal); K57.30 Diverticulosis of large intestine without perforation or abscess without bleeding
CPT/HCPCS: 45378